=== PATIENT | female | born 1960 | race Caucasian/White ===

== ENCOUNTER → 2016-11-03 | Outpatient (CLI) | payer MEDICARE ==
--- NOTE | 2016-11-03 08:31 | BD ---
EXAMINATION TYPE: MG DEXA axial skeleton. DATE OF EXAM: 11/03/2016 7:45 AM COMPARISON: NONE CLINICAL HISTORY: Height: 62.5 IN Weight: 122 LBS FRAX RISK QUESTIONS: Alcohol (3 or more units per day): NO Family History (Parent hip fracture): NO Glucocorticoids (More than 3mos): NO (Ex: prednisone, prednisolone, methylprednisolone, dexamethasone, and hydrocortisone). History of Fracture in Adulthood: YES Secondary Osteoporosis: 1. Type 1 Diabetes: NO 2. Hyperthyroidism: NO 3. Menopause before 45: NO 4. Malnutrition: NO 5. Chronic liver disease: NO Rheumatoid Arthritis: YES Current Tobacco Use: YES RISK FACTORS HISTORY OF: Other Fractures since Age 51: YES RIB FX When: AGE 52 Active: YES Diet low in dairy products/other sources of calcium: YES Postmenopausal woman: AGE 49 Take estrogen and/or progesterone medications: NOT NOW How long: AGE 48 - 50 MEDICATIONS: Additional Medications: QUAR, VENTILIN, RISPERIDINE, NORCO, IBUPROFEN EXAM MEASUREMENTS: Bone mineral densitometry was performed using the Acupera System. Bone mineral density as measured about the Lumbar spine is: ----- L1-L4(G/cm2): 0.822 T Score Values are as follows: ----- L2: -3.3 ----- L3: -3.3 ----- L4: -2.6 ----- L1-L4: -3.0 Bone mineral density BASELINE Bone mineral density about the R hip (g/cm2): 0.686 Bone mineral density about the L hip (g/cm2): 0.692 T Score values are as follows: -----R Neck: -2.5 -----L Neck: -2.5 -----R Intertrochanter: -2.7 -----L Intertrochanter: -2.1 Bone mineral density BASELINE IMPRESSION: Osteoporosis (T Score less than -2.5) as noted by T Score values at the There is increased fracture risk and therapy is usually indicated based on age. Re-Screen 1-2 years. NOTE: T-SCORE=SD OF THE YOUNG ADULT MEAN.
== END | disposition home or self-care (01) ==
LOC: RADBDWWP 07:43
PROVIDERS: ATTEND Family Medicine
DX: M81.0 Age-related osteoporosis without current pathological fracture (principal)
CPT/HCPCS: 77080

== ENCOUNTER 2021-11-19 08:14 | Day surgery (SDC) | payer MEDICARE ==
[2021-11-17 09:51] VITALS: BMI 23.2
[~2021-11-19 08:14] MED LIST: LACTATED RINGERS 1,000 ML IV SCH; LIDOCAINE 1% (10MG/ML) FOR IV START INTRADERMA PRN
[2021-11-19 09:22] VITALS: TEMP 97.4
[2021-11-19] MEDS ORDERED: LIDOCAINE 1% INJ 10MG/ML (20 ML MDV) ONE (09:59)
[2021-11-19] MEDS ORDERED: PROPOFOL 10 MG/ML 20 ML VIAL IV ONE (09:59)
--- NOTE | 2021-11-19 10:15 | P.PCN ---
Date of Procedure: 11/19/21 Procedure(s) Performed: BRIEF HISTORY: Patient is a 61-year-old pleasant scheduled white female for an elective colonoscopy as a part of evaluation of positive cologuard. PROCEDURE PERFORMED: Colonoscopy with snare polypectomy. PREOPERATIVE DIAGNOSIS: Positive cologuard. IV sedation per Anesthesia. PROCEDURE: After informed consent was obtained, the patient, was brought into the endoscopy unit. IV sedation was administered by Anesthesia under continuous monitoring. Digital rectal examination was normal. Initially the Olympus CF-160 flexible video colonoscope was then inserted in the rectum, gradually advanced into the cecum without any difficulty. Careful examination was performed as the scope was gradually being withdrawn. Ileocecal valve and the appendiceal orifice were visualized and appeared normal. Prep was excellent. Mucosa of the cecum, ascending colon, transverse colon, descending colon normal. In the sigmoid colon there was a 1 cm polyp removed by snare polypectomy. In the rectum there were 3 small polyps measuring 3-4 mm in size all of which were removed by snare polypectomy. Scattered sigmoid diverticulosis seen. Rest of the sigmoid colon, and rectum appeared normal. Retroflexion was performed in the rectum and no lesions were seen. The patient tolerated the procedure well. IMPRESSION: 1 cm; sigmoid polyp status post polypectomy 3-4 mm 3 rectal polyps status post polypectomy Scattered sigmoid diverticula RECOMMENDATIONS: Findings of this examination were discussed with the patient as well as her family. She was advised to follow with the biopsy results. If the biopsies reveal adenoma she can have a repeat colonoscopy in 3 years..
[2021-11-19 10:46] VITALS: BP 151/82; PULSE 66; RESP 20
== END 2021-11-19 11:09 | disposition home or self-care (01) ==
LOC: ORWHC2ENDO 08:14
PROVIDERS: ATTEND Internal Medicine Gastroenterology
DX: D12.5 Benign neoplasm of sigmoid colon (principal); K62.1 Rectal polyp; K57.30 Diverticulosis of large intestine without perforation or abscess without bleeding; Z79.899 Other long term (current) drug therapy; J44.9 Chronic obstructive pulmonary disease, unspecified; Z87.891 Personal history of nicotine dependence; M06.9 Rheumatoid arthritis, unspecified; F41.9 Anxiety disorder, unspecified; F31.9 Bipolar disorder, unspecified
CPT/HCPCS: 88305; 45385; J2001; J2704

== ENCOUNTER 2021-11-23 02:41 | Observation (INO) | payer MEDICARE ==
[2021-11-23] MEDS ORDERED: SODIUM CHLORIDE 0.9% 500 ML 500 ML IV STA (05:56)
--- NOTE | 2021-11-23 06:26 | ED ---
Recheck HPI - General Chief Complaint: GI Bleed Stated Complaint: Rectal Bleeding Time Seen by Provider: 11/23/21 04:02 Source: patient, RN notes reviewed, old records reviewed Mode of arrival: ambulatory Limitations: no limitations - History of Present Illness Initial Comments: This is a 7-year-old female DF for evaluation she presents today for evaluation of bright red blood per rectum with blood clots, patient colonoscopy on for Dr. Blair noticed bleeding last night had minimal spotting and then some clotting. No lightheadedness dizziness or weakness, patient does not fill his episodes but even with change of position. She is without pain. A she is on blood thinners. Patient did have multiple polyps removed during colonoscopy MD Complaint: wound re-check, abnormal lab (Patient concern for bleeding per r ectum) -: hour(s) Returns Today for: other (Bleeding after colonoscopy) Symptoms Since Prior Visit: no new symptoms Context: other (Bleeding after colonoscopy) Associated Symptoms: none Treatments Prior to Arrival: other (none) - Related Data Home Medications Medication Instructions Recorded Confirmed risperiDONE [RisperDAL] 1 mg PO HS 11/17/21 11/19/21 Allergies Allergy/AdvReac Type Severity Reaction Status Date / Time No Known Allergies Allergy Verified 11/23/21 03:32 Review of Systems ROS Statement: Those systems with pertinent positive or pertinent negative responses have been documented in the HPI. ROS Other: All systems not noted in ROS Statement are negative. Past Medical History Past Medical History: COPD, Rheumatoid Arthritis (RA) Additional Past Medical History / Comment(s): DDD History of Any Multi-Drug Resistant Organisms: None Reported Past Surgical History: No Surgical Hx Reported Additional Past Surgical History / Comment(s): LESION OFF OVARY, D & C., COLONOSCOPY. Past Anesthesia/Blood Transfusion Reactions: No Reported Reaction Past Psychological History: Anxiety, Bipolar, Depression Smoking Status: Former smoker Past Alcohol Use History: Heavy Past Drug Use History: None Reported - Past Family History Mother Family Medical History: COPD Additional Family Medical History / Comment(s): Mother at age 62 from complications of COPD Father Family Medical History: Diabetes Mellitus, Hyperlipidemia, Hypertension Additional Family Medical History / Comment(s): hypertension and high cholesterol. General Exam General appearance: alert, in no apparent distress Head exam: Present: atraumatic, normocephalic, normal inspection Eye exam: Present: normal appearance, PERRL, EOMI. Absent: scleral icterus, conjunctival injection, periorbital swelling ENT exam: Present: normal exam, mucous membranes moist Neck exam: Present: normal inspection. Absent: tenderness, meningismus, lymphadenopathy Respiratory exam: Present: normal lung sounds bilaterally. Absent: respiratory distress, wheezes, rales, rhonchi, stridor Cardiovascular Exam: Present: regular rate, normal rhythm, normal heart sounds. Absent: systolic murmur, diastolic murmur, rubs, gallop, clicks GI/Abdominal exam: Present: soft, normal bowel sounds. Absent: distended, tenderness, guarding, rebound, rigid Extremities exam: Present: normal inspection, full ROM, normal capillary refill. Absent: tenderness, pedal edema, joint swelling, calf tenderness Back exam: Present: normal inspection Neurological exam: Present: alert, oriented X3, CN II-XII intact Psychiatric exam: Present: normal affect, normal mood Skin exam: Present: warm, dry, intact, normal color. Absent: rash Course Vital Signs 11/23/21 11/23/21 11/23/21 03:26 04:15 06:25 Temperature 98.6 F Pulse Rate 80 76 75 Respiratory 18 18 18 Rate Blood Pressure 151/99 159/97 154/90 O2 Sat by Pulse 97 99 97 Oximetry - Reevaluation(s) Reevaluation #1: 11/23/21 07:12 Medical records reviewed Reevaluation #2: 11/23/21 07:12 Patient is no pain remains without pain. No recurrent significant bowel movements containing blood Reevaluation #3: 11/23/21 07:12 Spoke patient regarding findings and questions answered - Consultations Consultation #1: Spoke with [facility] who will admit this patient Medical Decision Making - Medical Decision Making 61 female to the ER for evaluation of bleeding bright red blood per rectum after colonoscopy. Also with some clots. No recurrent bleeding here in the ER. We'll admit for repeat CBC - Lab Data Result diagrams: 11/23/21 06:25 11/23/21 06:25 Lab Results 11/23/21 11/23/21 11/23/21 Range/Units 06:25 06:25 06:25 WBC 10.7 H (3.8-10.6) k/uL RBC 4.23 (3.80-5.40) m/uL Hgb 13.6 (11.4-16.0) gm/dL Hct 41.0 (34.0-46.0) % MCV 96.9 (80.0-100.0) fL MCH 32.2 (25.0-35.0) pg MCHC 33.2 (31.0-37.0) g/dL RDW 12.3 (11.5-15.5) % Plt Count 268 (150-450) k/uL MPV 7.6 Neutrophils % 71 % Lymphocytes % 21 % Monocytes % 5 % Eosinophils % 1 % Basophils % 1 % Neutrophils # 7.6 (1.3-7.7) k/uL Lymphocytes # 2.2 (1.0-4.8) k/uL Monocytes # 0.6 (0-1.0) k/uL Eosinophils # 0.1 (0-0.7) k/uL Basophils # 0.1 (0-0.2) k/uL PT 10.7 (9.0-12.0) sec INR 1.0 (<1.2) APTT 25.6 (22.0-30.0) sec Sodium 137 (137-145) mmol/L Potassium 4.0 (3.5-5.1) mmol/L Chloride 104 (98-107) mmol/L Carbon Dioxide 28 (22-30) mmol/L Anion Gap 5 mmol/L BUN 10 (7-17) mg/dL Creatinine 0.73 (0.52-1.04) mg/dL Est GFR (CKD-EPI)AfAm >90 (>60 ml/min/1.73 sqM) Est GFR (CKD-EPI)NonAf >90 (>60 ml/min/1.73 sqM) Glucose 100 H (74-99) mg/dL Calcium 8.8 (8.4-10.2) mg/dL Magnesium 1.8 (1.6-2.3) mg/dL Total Bilirubin 0.6 (0.2-1.3) mg/dL AST 25 (14-36) U/L ALT 19 (4-34) U/L Alkaline Phosphatase 66 (38-126) U/L Total Protein 6.9 (6.3-8.2) g/dL Albumin 4.1 (3.5-5.0) g/dL Blood Type Recheck Bld Type Recheck Status Spec Expiration Date 11/23/21 Range/Units 06:25 WBC (3.8-10.6) k/uL RBC (3.80-5.40) m/uL Hgb (11.4-16.0) gm/dL Hct (34.0-46.0) % MCV (80.0-100.0) fL MCH (25.0-35.0) pg MCHC (31.0-37.0) g/dL RDW (11.5-15.5) % Plt Count (150-450) k/uL MPV Neutrophils % % Lymphocytes % % Monocytes % % Eosinophils % % Basophils % % Neutrophils # (1.3-7.7) k/uL Lymphocytes # (1.0-4.8) k/uL Monocytes # (0-1.0) k/uL Eosinophils # (0-0.7) k/uL Basophils # (0-0.2) k/uL PT (9.0-12.0) sec INR (<1.2) APTT (22.0-30.0) sec Sodium (137-145) mmol/L Potassium (3.5-5.1) mmol/L Chloride (98-107) mmol/L Carbon Dioxide (22-30) mmol/L Anion Gap mmol/L BUN (7-17) mg/dL Creatinine (0.52-1.04) mg/dL Est GFR (CKD-EPI)AfAm (>60 ml/min/1.73 sqM) Est GFR (CKD-EPI)NonAf (>60 ml/min/1.73 sqM) Glucose (74-99) mg/dL Calcium (8.4-10.2) mg/dL Magnesium (1.6-2.3) mg/dL Total Bilirubin (0.2-1.3) mg/dL AST (14-36) U/L ALT (4-34) U/L Alkaline Phosphatase (38-126) U/L Total Protein (6.3-8.2) g/dL Albumin (3.5-5.0) g/dL Blood Type Recheck No Previous Record Bld Type Recheck Status CABO Indicated Spec Expiration Date 11/26/2021 - 2324 Disposition Clinical Impression: Post-op bleeding Disposition: ADMITTED IP TO THIS HOSP Condition: Good Is patient prescribed a controlled substance at d/c from ED?: No Referrals: Navi Enriquez MD [Primary Care Provider] - 1-2 days
[2021-11-23 06:36] LABS: Basophils # (A) 0.1 k/uL (0-0.2); Basophils % (A) 1 %; Eosinophils # (A) 0.1 k/uL (0-0.7); Eosinophils % (A) 1 %; HGB 13.6 gm/dL (11.4-16.0); Lymphocytes # (A) 2.2 k/uL (1.0-4.8); Lymphocytes % (A) 21 %; MCH 32.2 pg (25.0-35.0); MCHC 33.2 g/dL (31.0-37.0); MCV 96.9 fL (80.0-100.0); Mean Platelet Volume 7.6; Monocytes # (A) 0.6 k/uL (0-1.0); Monocytes % (A) 5 %; Neutrophils # (A) 7.6 k/uL (1.3-7.7); Neutrophils % (A) 71 %; Platelet Count 268 k/uL (150-450); RBC 4.23 m/uL (3.80-5.40); RDW 12.3 % (11.5-15.5); WBC 10.7 k/uL (3.8-10.6)
[2021-11-23 06:44] LABS: ALT 19 U/L (4-34); AST 25 U/L (14-36); African American GFR (CKD) >90 (>60 ml/min/1.73 sqM); Albumin 4.1 g/dL (3.5-5.0); Alkaline Phosphatase 66 U/L (38-126); Anion Gap 5 mmol/L; Blood Urea Nitrogen 10 mg/dL (7-17); Calcium 8.8 mg/dL (8.4-10.2); Carbon Dioxide 28 mmol/L (22-30); Chloride 104 mmol/L (98-107); Glucose 100 mg/dL (74-99); Magnesium 1.8 mg/dL (1.6-2.3); Non-African American GFR(CKD) >90 (>60 ml/min/1.73 sqM); Sodium 137 mmol/L (137-145); Total Bilirubin 0.6 mg/dL (0.2-1.3); Total Protein 6.9 g/dL (6.3-8.2)
[2021-11-23 06:52] LABS: Partial Thromboplastin Time 25.6 sec (22.0-30.0); Prothrombin Time 10.7 sec (9.0-12.0)
[2021-11-23] MEDS ORDERED: ONDANSETRON 4 MG/2 ML VIAL IVP PRN (07:08)
[2021-11-23] MEDS ORDERED: NALOXONE 0.4 MG/ML 1 ML VIAL IV PRN (07:08)
[2021-11-23] MEDS: SODIUM CHLORIDE 0.9% 1,000 ML IV SCH (09:34)
[2021-11-23] MEDS: PANTOPRAZOLE 40 MG/10 ML VIAL IV SCH (10:39)
[2021-11-23 13:25] LABS: Basophils # (A) 0.1 k/uL (0-0.2); Basophils % (A) 1 %; Eosinophils # (A) 0.2 k/uL (0-0.7); Eosinophils % (A) 2 %; HCT 34.6 % (34.0-46.0); HGB 11.7 gm/dL (11.4-16.0); Lymphocytes # (A) 2.5 k/uL (1.0-4.8); Lymphocytes % (A) 30 %; MCH 33.2 pg (25.0-35.0); MCHC 33.8 g/dL (31.0-37.0); MCV 98.2 fL (80.0-100.0); Mean Platelet Volume 7.5; Monocytes # (A) 0.6 k/uL (0-1.0); Monocytes % (A) 8 %; Neutrophils # (A) 4.8 k/uL (1.3-7.7); Neutrophils % (A) 58 %; Platelet Count 236 k/uL (150-450); RBC 3.52 m/uL (3.80-5.40); RDW 12.3 % (11.5-15.5); WBC 8.3 k/uL (3.8-10.6)
[2021-11-23 19:43] VITALS: TEMP 98.4
--- NOTE | 2021-11-23 22:45 | P.HPIM ---
History of Present Illness H&P Date: 11/23/21 Chief Complaint: Blood per rectum Patient is a 61-year-old female with known history of COPD, rheumatoid arthritis, degenerative disc disease, anxiety/depression and bipolar disorder and prior history of smoking and heavy alcohol use presents to ER with complaints of bright red blood per rectum with blood clots. Patient had colonoscopy on 11/19/[address] Blair. Was found to have 1 cm sigmoid polyp status post polypectomy and 3 to 4 mm x 3 rectal polyps status post polypectomy and scattered sigmoid diverticula. Patient otherwise denies any complaints of abdominal pain. No dysuria or hematuria. No cough or sputum production. No chest pain or shortness of breath. No fever no chills. Currently patient is not on any blood thinners. Laboratory data showed WBC 10.7 hemoglobin 13.6 and platelet count 268 Sodium 137 potassium 4.0 chloride 104 BUN 10 and creatinine 0.17 blood sugar is 100 and calcium 8.8 liver enzymes are not elevated. Review of Systems Constitutional: Patient denies any fever or chills . No generalized weakness or weight loss. Abdomen: Patient denied nausea vomiting and diarrhea and abdominal pain. Cardiovascular: Patient denies any chest pain or short of breath no palpitations. Respiratory: patient denied any cough or sputum production. No shortness of breath Neurologic: Patient denied any numbness or tingling headache. Musculoskeletal: Patient denies any complaints of joint swelling or deformity. Skin: Negative Psychiatric: Negative Endocrine: No heat or cold intolerance. No recent weight gain. Genitourinary: No dysuria or hematuria. All other 14 point ROS negative except the above Past Medical History Past Medical History: COPD, Rheumatoid Arthritis (RA) Additional Past Medical History / Comment(s): DDD History of Any Multi-Drug Resistant Organisms: None Reported Past Surgical History: No Surgical Hx Reported Additional Past Surgical History / Comment(s): LESION OFF OVARY, D & C., COLONOSCOPY. Past Anesthesia/Blood Transfusion Reactions: No Reported Reaction Past Psychological History: Anxiety, Bipolar, Depression Smoking Status: Former smoker Past Alcohol Use History: Heavy Additional Past Alcohol Use History / Comment(s): DRINKS 3 BEERS 3-5 DAYS A WEEK. QUIT SMOKING 2 MONTHS AGO, STARTED AGE 17, SMOKED 1 PPD, QUIT FOR 10-15 YRS & RESTARTED. Past Drug Use History: None Reported Additional Drug Use History / Comment(s): PAST HX OF COCAINE & NARCOTIC ADDICTION. - Past Family History Mother Family Medical History: COPD Additional Family Medical History / Comment(s): Mother at age 62 from complications of COPD Father Family Medical History: Diabetes Mellitus, Hyperlipidemia, Hypertension Additional Family Medical History / Comment(s): hypertension and high cholesterol. Medications and Allergies Home Medications Medication Instructions Recorded Confirmed Type risperiDONE [RisperDAL] 1 mg PO HS 11/17/21 11/23/21 History Allergies Allergy/AdvReac Type Severity Reaction Status Date / Time No Known Allergies Allergy Verified 11/23/21 11:18 Physical Exam Vitals: Vital Signs Temp Pulse Pulse Resp BP BP Pulse Ox 11/23/21 08:39 97.6 F 77 16 171/96 99 11/23/21 06:25 75 18 154/90 97 11/23/21 04:15 76 18 159/97 99 11/23/21 03:26 98.6 F 80 18 151/99 97 Intake and Output 11/22/21 11/23/21 11/23/21 22:59 06:59 14:59 Other: Weight 58.967 kg 58.967 kg PHYSICAL EXAMINATION: Patient is lying in the bed comfortably, no acute distress, awake alert and oriented.. HEENT: Normocephalic. Neck is supple. Pupils reactive. Nostrils clear. Oral cavity is moist. Neck reveals no JVD, carotid bruits, or thyromegaly. CHEST EXAMINATION: Trachea is central. Symmetrical expansion. Lung [place] clear to auscultation and percussion. CARDIAC: Normal S1, S2 with no gallops. No murmurs ABDOMEN: Soft. Bowel sounds normal. No organomegaly. No abdominal bruits. Extremities: reveal no edema. No clubbing or cyanosis Neurologically awake, alert, oriented x3 with well-coordinated movements. No focal deficits noted Skin: No rash or skin lesions. Psychiatric: Cooperative. Nonsuicidal Musculoskeletal: No joint swelling or deformity. Normal range of motion. Results CBC & Chem 7: 11/23/21 13:12 11/23/21 06:25 Labs: Abnormal Lab Results - Last 24 Hours (Table) 11/23/21 11/23/21 Range/Units 06:25 06:25 WBC 10.7 H (3.8-10.6) k/uL Glucose 100 H (74-99) mg/dL Thrombosis Risk Factor Assmnt - DVT/VTE Prophylaxis DVT/VTE Prophylaxis: Pharmacologic Prophylaxis ordered - Choose All That Apply Each Factor Represents 1 point: Age 41-60 years Thrombosis Risk Factor Assessment Total Risk Factor Score: 1 Thrombosis Risk Factor Assessment Level: Low Risk Assessment and Plan Assessment: Bright red blood per rectum with blood clots status post colonoscopy on 11/19/2021 with multiple polypectomy. COPD not in exacerbation Rheumatoid arthritis Degenerative disc disease Anxiety/depression bipolar disorder Previous history of of smoking Daily alcohol use DVT prophylaxis with SCDs Plan: Patient will be continued on IV hydration and monitor H&H. Rectal bleeding/clots likely due to postsurgical and no active bleeding noted at this time. Continue to monitor patient for 24 hours and monitor for any alcohol withdrawal symptoms. Currently patient denies any complaints of abdominal pain. Anticipate discharge in the next 24 hours. Follow-up CBC and BMP tomorrow.
[2021-11-24] MEDS: SODIUM CHLORIDE 0.9% 1,000 ML IV SCH (08:13)
[2021-11-24] MEDS: PANTOPRAZOLE 40 MG/10 ML VIAL IV SCH (08:14)
[2021-11-24 08:21] VITALS: BP 109/60; PULSE 63; RESP 16
[2021-11-24] MEDS ORDERED: MULTIVITAMINS, THERA 1 EACH TAB PO SCH (09:00)
[2021-11-24] MEDS ORDERED: THIAMINE 100 MG TAB PO SCH (09:00)
[2021-11-24 10:42] LABS: Basophils # (A) 0.02 X 10*3/uL (0.00-0.10); Basophils % (A) 0.3 %; Eosinophils # (A) 0.16 X 10*3/uL (0.04-0.35); Eosinophils % (A) 2.3 %; HCT 33.2 % (37.2-46.3); HGB 10.8 g/dL (12.0-15.0); Immature Grans, Automated 0.3 %; Lymphocytes # (A) 2.15 X 10*3/uL (0.90-5.00); Lymphocytes % (A) 30.8 %; MCH 31.9 pg (27.0-32.0); MCHC 32.5 g/dL (32.0-37.0); MCV 97.9 fL (80.0-97.0); Mean Platelet Volume 10.5 fL (9.5-12.2); Monocytes # (A) 0.59 X 10*3/uL (0.20-1.00); Monocytes % (A) 8.4 %; NRBC Per 100 WBC 0 /100 WBCS (0.0-0.0); Neutrophils # (A) 4.05 X 10*3/uL (1.80-7.70); Neutrophils % (A) 57.9 %; Platelet Count 235 X 10*3/uL (140-440); RBC 3.39 X 10*6/uL (4.10-5.20); RDW 12.8 % (11.5-14.5); WBC 6.99 X 10*3/uL (4.50-10.00)
[2021-11-24 11:02] LABS: African American GFR (CKD) 92.9 (60.0-200.0); Albumin/Globulin Ratio 2.35 (1.60-3.17); Anion Gap 9.6 mmol/L (10.00-18.00); BUN/Creat Ratio 14.25 Ratio (12.00-20.00); Blood Urea Nitrogen 11.4 mg/dL (9.0-27.0); Calcium 8.8 mg/dL (8.7-10.3); Carbon Dioxide 26.4 mmol/L (20.0-27.5); Globulin 1.7 g/dL (1.6-3.3); Non-African American GFR(CKD) 80.1 (60.0-200.0); Potassium 4.1 mmol/L (3.5-5.5); Total Bilirubin 0.4 mg/dL (0.30-1.20); Total Protein 5.7 g/dL (6.2-8.2)
--- NOTE | 2021-11-25 15:39 | P.DS ---
Providers Date of admission: 11/23/21 07:39 Expected date of discharge: 11/24/21 Attending physician: Navi Enriquez MD Primary care physician: Navi Enriquez MD Hospital Course: Final Diagnoses: Bright red blood per rectum with blood clots status post colonoscopy on 11/19/2021 with multiple polypectomy. Resolved, hemoglobin stable. COPD not in exacerbation Rheumatoid arthritis Degenerative disc disease Anxiety/depression bipolar disorder Previous history of of smoking Daily alcohol use Hospital course:Patient is a 61-year-old female with known history of COPD, rheumatoid arthritis, degenerative disc disease, anxiety/depression and bipolar disorder and prior history of smoking and heavy alcohol use presents to ER with complaints of bright red blood per rectum with blood clots. Patient had colonoscopy on 11/19/[address] Blair. Was found to have 1 cm sigmoid polyp status post polypectomy and 3 to 4 mm x 3 rectal polyps status post polypectomy and scattered sigmoid diverticula. Patient otherwise denies any complaints of abdominal pain. No dysuria or hematuria. No cough or sputum production. No chest pain or shortness of breath. No fever no chills. Currently patient is not on any blood thinners. Laboratory data showed WBC 10.7 hemoglobin 13.6 and platelet count 268 Sodium 137 potassium 4.0 chloride 104 BUN 10 and creatinine 0.17 blood sugar is 100 and calcium 8.8 liver enzymes are not elevated. Maintained on IV fluid hydration with close monitoring of H&H. No further rectal bleeding reported. Reports no bowel movement since admission. Tolerating diet with no nausea or vomiting. Ambulating, tolerated exertion well. Denies chest pain, palpitations or shortness of breath. Denies lightheadedness, dizziness or focal deficits. Patient will be discharged home today in a stable condition with guarded prognosis, outpatient CBC. The impression and plan of care has been dictated as directed. : I performed a history and examination of this patient, discussed the same with the dictator. I agree with the dictator's note ,documented as a scribe. Any additional findings or plans will be noted. Patient Condition at Discharge: Stable Plan - Discharge Summary Discharge Rx Participant: No New Discharge Prescriptions: New Multivitamins, Thera [Multivitamin (formulary)] 1 each PO DAILY tab Thiamine [Vitamin B-1] 100 mg PO DAILY tab Continue risperiDONE [RisperDAL] 1 mg PO HS Discharge Medication List risperiDONE [RisperDAL] 1 mg PO HS 11/17/21 [History] Multivitamins, Thera [Multivitamin (formulary)] 1 each PO DAILY tab 11/24/21 [Rx] Thiamine [Vitamin B-1] 100 mg PO DAILY tab 11/24/21 [Rx] Follow up Appointment(s)/Referral(s): Navi Enriquez MD [Primary Care Provider] - 11/26/21 11:45 am (Appointment will be at the [place] location.) Ambulatory/Diagnostic Orders: Complete Blood Count w/diff [LAB.AMB] Time Frame: 3 Days, Location: None Selected Patient Instructions/Handouts: Gastrointestinal Bleeding (DC) Discharge Disposition: HOME SELF-CARE
== END 2021-11-24 12:15 | disposition home or self-care (01) ==
LOC: EC 02:41 → 6NMEDSUR 07:39
PROVIDERS: ADMIT Family Medicine; ATTEND Family Medicine
DX: K91.840 Postprocedural hemorrhage of a digestive system organ or structure following a digestive system procedure (principal); Y83.8 Other surgical procedures as the cause of abnormal reaction of the patient, or of later complication, without mention of misadventure at the time of the procedure; K63.5 Polyp of colon; K57.30 Diverticulosis of large intestine without perforation or abscess without bleeding; J44.9 Chronic obstructive pulmonary disease, unspecified; F41.9 Anxiety disorder, unspecified; F31.9 Bipolar disorder, unspecified; M06.9 Rheumatoid arthritis, unspecified; K62.1 Rectal polyp; Z82.49 Family history of ischemic heart disease and other diseases of the circulatory system; Z82.5 Family history of asthma and other chronic lower respiratory diseases; Z83.3 Family history of diabetes mellitus; Z87.891 Personal history of nicotine dependence
CPT/HCPCS: 96376; 96374; 99285; 36415; 86900; 86901; 80053 ×2; 83735; 85025 ×2; 85610; 85730; 86850; G0378 ×2; C9113 ×2

== ENCOUNTER → 2023-11-17 | Outpatient (CLI) | payer MEDICARE ==
--- NOTE | 2023-11-21 18:13 | MM ---
Reason for Exam: Screening (asymptomatic). Last mammogram was performed 10 year(s) and 4 month(s) ago. Patient History: Menarche at age 14. First Full-Term at age 20. Postmenopausal. Estrogen for 1 year from age 49 until age 50. Progesterone for 1 year from age 49 until age 50. Risk Values: Dulce Maria 5 year model risk: 1.1%. NCI Lifetime model risk: 5.0%. Prior Study Comparison: No prior studies available for comparison. Tissue Density: The breasts are heterogeneously dense, which may obscure small masses. Findings: Analyzed By CAD. There is a 1 cm mass at the approximate 5:00 position right breast close to the nipple. 3-D images suggest circumscribed margins. Further ultrasound evaluation is recommended. No suspicious microcalcification or other discrete abnormality is seen. Overall Assessment: Incomplete: need additional imaging evaluation, BI-RAD 0 Management: Diagnostic Breast Ultrasound of the right breast. For further assessment of a 1 cm nodule 5:00 right breast close to the nipple. [facility] will attempt to contact patient to return for supplemental views and ultrasound if indicated. Electronically signed and approved by: Perez Calixto M.D. Radiologist
== END | disposition home or self-care (01) ==
LOC: RADMAMWWP 10:14
PROVIDERS: ATTEND Family Medicine
DX: Z12.31 Encounter for screening mammogram for malignant neoplasm of breast (principal); Z78.0 Asymptomatic menopausal state
CPT/HCPCS: 77063; 77067

== ENCOUNTER → 2023-11-17 | Outpatient (CLI) | payer MEDICARE ==
--- NOTE | 2023-11-17 12:25 | CTL ---
EXAMINATION TYPE: CT Low Dose Lung DATE OF EXAM ORDERED: 11/17/2023 HISTORY: . Lung cancer screening CT DLP: 62.[address] CTDI: 1.6 mGy Automated exposure control for dose reduction was used. SCREENING VISIT: Follow-up. COMPARISON: 11/13/2022. TECHNIQUE: Low dose computed tomography scan was performed through the chest at 1 mm thick sections a nd reconstructed images in multiple planes at 1 mm and [address] DIAGNOSTIC QUALITY: Satisfactory FINDINGS: Mediastinum and Kaylyn: There is no axillary, mediastinal or hilar lymphadenopathy. Pleural and Pericardial spaces: There are no pleural or pericardial effusions. Upper Abdomen: There is a 2.3 cm cyst within the left lobe of the liver. Additional cyst is seen of t he liver dome measuring 1.9 cm. The visualized upper abdomen otherwise appears unremarkable. Cardiovascular: There is mild vascular calcification in the aortic arch without evidence of aneurysma l dilation. Lung Parenchyma and Airways: Mild diffuse centrilobular emphysema is seen. Bones: No fracture or aggressive osseous lesion. IMPRESSION: 1. Negative lung cancer screening examination for significant pulmonary nodules. 2. Mild emphysema. CT LUNG RAD AND CT CHEST RECOMMENDATION: Lung-Rad 1 Negative: Continue annual screening with LDCT in 12 months.
== END | disposition home or self-care (01) ==
LOC: RADCTMAIN 09:57
PROVIDERS: ATTEND Family Medicine
DX: Z12.2 Encounter for screening for malignant neoplasm of respiratory organs (principal); J43.2 Centrilobular emphysema; Z87.891 Personal history of nicotine dependence
CPT/HCPCS: 71271

== ENCOUNTER → 2023-11-23 | Outpatient (CLI) | payer MEDICARE ==
--- NOTE | 2023-11-23 15:00 | USB ---
Reason for Exam: Additional evaluation requested from abnormal screening. Patient History: Menarche at age 14. First Full-Term at age 20. Postmenopausal. Estrogen for 1 year from age 49 until age 50. Progesterone for 1 year from age 49 until age 50. Risk Values: Dulce Maria 5 year model risk: 1.1%. NCI Lifetime model risk: 5.0%. Technique: Method: Targeted. Doppler: Color. Patient Position: Supine. Prior Study Comparison: 02/05/2010 Bilateral Screening Mammogram, [facility]. 08/01/2013 Bilateral Screening Mammogram, [facility]. 11/17/2023 Bilateral MG 3D screening mammo w/cad, [facility]. Findings: The periareolar of the right breast, the axilla of the right breast and the retroareolar of the right breast were scanned. Technique utilized:US breast workup limited RT Image; Ultrasound imaging of: Area of concern, retroareolar region and axilla. There is a simple appearing cyst at 4:00 1 cm from the nipple measuring 8 x 9 x 6 mm with dilated ducts in the area. There a be a masslike area within one of these ducts measuring 4 x 3 mm seen on one image. Consider short-term follow-up in 3 months to ensure stability/resolution.. Overall Assessment: Probably benign, BI-RAD 3 Management: Diagnostic Breast Ultrasound of the right breast in 3 months. A clinical breast exam by your physician is recommended on an annual basis and results should be correlated with mammographic findings. This exam should not preclude additional follow-up of suspicious palpable abnormalities. Results were given to the patient verbally at the time of exam. Electronically signed and approved by: Mark Lundberg DO
== END | disposition home or self-care (01) ==
LOC: RADUSWWP 13:41
PROVIDERS: ATTEND Family Medicine
DX: R92.8 Other abnormal and inconclusive findings on diagnostic imaging of breast (principal); Z78.0 Asymptomatic menopausal state

== ENCOUNTER → 2024-02-24 | Outpatient (CLI) | payer MEDICARE ==
--- NOTE | 2024-02-24 09:53 | USB ---
Reason for Exam: Follow-up at short interval from prior study. Patient History: Menarche at age 14. First Full-Term at age 20. Postmenopausal. Estrogen for 1 year from age 49 until age 50. Progesterone for 1 year from age 49 until age 50. Risk Values: Dulce Maria 5 year model risk: 1.1%. NCI Lifetime model risk: 4.9%. Technique: Method: Targeted. Prior Study Comparison: 02/05/2010 Bilateral Screening Mammogram, [facility]. 08/01/2013 Bilateral Screening Mammogram, [facility]. 11/17/2023 Bilateral MG 3D screening mammo w/cad, [facility]. Findings: The periareolar of the right breast, the axilla of the right breast and the retroareolar of the right breast were scanned. Complex cystic lesion right 4:00 position 1 cm from the nipple. Aspiration is advised. This lesion measures 1 cm x 5 mm. Additional periductal or intraductal hypoechoic area measuring 8 mm at the 12:00 position. Additional aspiration or biopsy is advised at this area. Overall Assessment: Suspicious, BI-RAD 4 Management: Ultrasound Core Biopsy of the right breast. A clinical breast exam by your physician is recommended on an annual basis and results should be correlated with mammographic findings. This exam should not preclude additional follow-up of suspicious palpable abnormalities. Results were given to the patient verbally at the time of exam. Electronically signed and approved by: Cheo Putnam M.D. Radiologis
== END | disposition home or self-care (01) ==
LOC: RADUSWWP 09:19
PROVIDERS: ATTEND Family Medicine
DX: N63.10 Unspecified lump in the right breast, unspecified quadrant (principal); Z78.0 Asymptomatic menopausal state

== ENCOUNTER → 2024-03-15 | Day surgery (SDC) | payer MEDICARE ==
--- NOTE | 2024-03-20 13:41 | MM ---
Reason for Exam: Post Procedure Mammogram. Last screening mammogram was performed 4 month(s) ago. Patient History: Menarche at age 14. First Full-Term at age 20. Postmenopausal. Estrogen for 1 year from age 49 until age 50. Progesterone for 1 year from age 49 until age 50. Risk Values: Dulce Maria 5 year model risk: 1.1%. NCI Lifetime model risk: 4.9%. Prior Study Comparison: 02/05/2010 Bilateral Screening Mammogram, [facility]. 08/01/2013 Bilateral Screening Mammogram, [facility]. 11/17/2023 Bilateral MG 3D screening mammo w/cad, [facility]. Tissue Density: Right: The breasts are heterogeneously dense, which may obscure small masses. Pathology Description: Location: 4 o'clock. no clip used. 0.5 mL aspirated The procedure of ultrasound guided core biopsy was explained to the patient. Benefits, alternatives, and risks were discussed. An informed consent was then obtained. A timeout was performed. The patient was placed in supine positioning for imaging and for the procedure. The overlying skin was prepped and draped in usual sterile fashion. Lidocaine was used as anesthetic into the skin and subcutaneous tissue up to area of concern in the right breast. A small skin jase was made with surgical scalpel. Under ultrasound guidance, a 12-gauge vacuum assisted biopsy gun device was used to obtain 2 core samples 12:00 position. It was noted during the biopsy appeared to be a pus like white fluid. A biopsy clip was left in lesion. Hydromark coil core marker was placed. The second area of concern at the 4:00 position 1 cm from the nipple was targeted. Following anesthetization with 1% lidocaine, an 18-gauge needle was advanced fluid withdrawn. Whitish thick fluid was obtained measured approximately 0.5 cm. Samples were sent to pathology for additional evaluation. The patient tolerated the procedure well without any immediate complication. The patient was kept in the radiology department for short stay after the procedure and then discharged home in stable condition. Postprocedure mammogram: The patient was transferred to mammography for physician ordered post procedure mammogram for clip placement verification. Impression: Successful ultrasound guided core biopsy of area of concern in the right breast, and aspiration second region. Full pathology results to follow. Recommendations: 1. Recommendations are pending pathology results. 2. Consider infection within the differential. Pathology Results: Results pending. Pathology Description: Location: 12 o'clock. Marker Left Behind. Needle Type: Mammotome Cores: 2 Skin Nicks: 1 Gauge: 13 The procedure of ultrasound guided core biopsy was explained to the patient. Benefits, alternatives, and risks were discussed. An informed consent was then obtained. A timeout was performed. The patient was placed in supine positioning for imaging and for the procedure. The overlying skin was prepped and draped in usual sterile fashion. Lidocaine was used as anesthetic into the skin and subcutaneous tissue up to area of concern in the right breast. A small skin jase was made with surgical scalpel. Under ultrasound guidance, a 12-gauge vacuum assisted biopsy gun device was used to obtain 2 core samples 12:00 position. It was noted during the biopsy appeared to be a pus like white fluid. A biopsy clip was left in lesion. Hydromark coil core marker was placed. The second area of concern at the 4:00 position 1 cm from the nipple was targeted. Following anesthetization with 1% lidocaine, an 18-gauge needle was advanced fluid withdrawn. Whitish thick fluid was obtained measured approximately 0.5 cm. Samples were sent to pathology for additional evaluation. The patient tolerated the procedure well without any immediate complication. The patient was kept in the radiology department for short stay after the procedure and then discharged home in stable condition. Postprocedure mammogram: The patient was transferred to mammography for physician ordered post procedure mammogram for clip placement verification. Impression: Successful ultrasound guided core biopsy of area of concern in the right breast, and aspiration second region. Full pathology results to follow. Recommendations: 1. Recommendations are pending pathology results. 2. Consider infection within the differential. Pathology Results: Result: Benign, Fibrocystic change. RIGHT BREAST, 12:00, ULTRASOUND GUIDED CORE BIOPSY: Favor fibroadenoma with proliferative fibrocystic change with usual ductal hyperplasia and focal microcalcification. RIGHT BREAST ASPIRATION: Hypocellular fluid with rare inflammatory cells (see note). Notes Correlation with the concurrent right breast biopsy case [id number] is suggested. Overall Assessment: Benign Assessment: MG diagnostic mammo RT wo CAD - Right: Benign, BI-RAD 2. Management: Diagnostic Mammogram of the right breast in 6 months. Electronically signed and approved by: Luther Padilla D.O. Radiologis
== END ==
LOC: RADUSWWP 10:14
PROVIDERS: ATTEND Surgery
DX: D24.1 Benign neoplasm of right breast (principal); N62 Hypertrophy of breast; R92.8 Other abnormal and inconclusive findings on diagnostic imaging of breast; Z78.0 Asymptomatic menopausal state
CPT/HCPCS: 88305; 88173; 77065; 76942; 19000; 19083; A4648

== ENCOUNTER → 2024-03-24 | Outpatient (CLI) | payer MEDICARE ==
[2024-03-24 15:08] VITALS: BP 127/83; PULSE 72; RESP 17; TEMP 97.6
--- NOTE | 2024-03-24 15:16 | P.GSCN ---
History of Present Illness Consult date: 03/24/24 Reason for Consult: abnormal right breast mammogram Requesting physician: Navi Enriquez History of present illness: Lisa is a 64 year old female seen in consultation for Dr. Enriquez regarding an abnormal mammogram of the right breast. She had a Bilateral mammogram on 11-17-23, this led to a right breast diagnostic mammogram and ultrasound on 02-24-24. This showed a complex cyst at 4 oclock and a 8mm nodule at 12:00. Aspiration of the cyst was hypocellular and biopsy of the nodule favored fibroadenoma. This was personally reviewed and discussed with Dr. Monte. this was found in a routine screening mammogram. The patient does not feel any new lumps masses or nodules of concern in either breast. She has not had any recent trauma or infection in the breast. She has never had any surgery on her breast. Caffeine: 3 cups/day nicotine: 8 cigarettes/day chocolate: occasional Family History: none Hormonal History: menarche: 13 A1, breast fed: no, age at first : 20 menopause: 51 Surgical History: D&C Medical History: COPD DJD arthritis depression Social History: nicotine: as above alcohol: twice a week drugs: none Review of Systems - Constitutional Denies fever, Denies weight loss - EENT Eyes: denies blurred vision Ears: deny: decreased hearing, tinnitus Ears, nose, mouth and throat: Denies dysphagia - Breasts bilateral: as per HPI - Cardiovascular Reports shortness of breath, Denies chest pain - Respiratory Respiratory Comment(s): COPD - Gastrointestinal Reports as per HPI - Genitourinary Genitourinary: Denies dysuria, Denies hematuria Menstruation: Reports postmenopausal - Musculoskeletal Musculoskeleta Comment(s): arthritis Reports as per HPI - Integumentary Denies rash, Denies unusual bruising - Neurological Reports syncope, Denies headaches - Psychiatric Reports depression - Endocrine Reports weight change - Hematologic/Lymphatic Denies easy bleeding, Denies easy bruising - Allergic/Immunologic Reports seasonal allergies Past Medical History Past Medical History: COPD, Rheumatoid Arthritis (RA) Additional Past Medical History / Comment(s): DDD History of Any Multi-Drug Resistant Organisms: None Reported Past Surgical History: No Surgical Hx Reported Additional Past Surgical History / Comment(s): LESION OFF OVARY, D & C., COLONOSCOPY. Past Anesthesia/Blood Transfusion Reactions: No Reported Reaction Past Psychological History: Anxiety, Bipolar, Depression Smoking Status: Former smoker Past Alcohol Use History: Heavy Additional Past Alcohol Use History / Comment(s): DRINKS alcohol 2 times weekly, 3 drinks at a time. QUIT SMOKING 2 MONTHS AGO, STARTED AGE 17, SMOKED 1 PPD, QUIT FOR 10-15 YRS & RESTARTED. Past Drug Use History: None Reported Additional Drug Use History / Comment(s): PAST HX OF COCAINE & NARCOTIC ADDICTION. - Past Family History Mother Family Medical History: COPD Additional Family Medical History / Comment(s): Mother at age 62 from complications of COPD Father Family Medical History: Diabetes Mellitus, Hyperlipidemia, Hypertension Additional Family Medical History / Comment(s): hypertension and high cholesterol. Medications and Allergies Home Medications Medication Instructions Recorded Confirmed Type risperiDONE [RisperDAL] 2 mg PO HS 11/17/21 02/25/24 History Atorvastatin [Lipitor] 10 mg PO DAILY 02/25/24 02/25/24 History Montelukast [Singulair] 10 mg PO DAILY 02/25/24 02/25/24 History hydroCHLOROthiazide [Hydrodiuril] 25 mg PO DAILY 02/25/24 02/25/24 History Allergies Allergy/AdvReac Type Severity Reaction Status Date / Time No Known Allergies Allergy Verified 03/24/24 15:06 Surgical - Exam - General moderate distress - Eyes normal ocular movement - ENT no hearing loss - Neck trachea midline - Respiratory normal respiratory effort, clear to auscultation - Cardiovascular Rhythm: regular Heart Sounds: normal: S1, S2 - Abdomen Abdomen: soft, non tender, no guarding, no rigid, no rebound - Integumentary normal turgor - Neurologic no disoriented, no combative - Musculoskeletal normal gait - Psychiatric oriented to time, oriented to person, oriented to place, speech is normal, memory intact Breast Exam: BRA: 34B Inspection: Bilateral grade 2 ptosis Palpation: Right breast: Multi-positional exam mild ecchymosis lateral periareolar region near recent biopsy, no dominant masses or nodules of concern particularly attention to the floor and 12:00 area and no dominant masses or nodules Right axilla: No adenopathy of concern Left breast: Multi-positional exam no dominant masses or nodules of concern Left axilla: No adenopathy of concern Results mammogram and ultrasound personally reviewed interpreted and discussed with Dr. Calixto from radiology these were done [id number], and [id number], 03-15-24. Assessment and Plan Assessment: Impression: Fibrocystic breast changes Pathology felt to be benign and concordant Plan: Repeat right breast mammogram and ultrasound in 6 months with examination at that time Patient to follow up sooner any questions or concerns CC: Dr. Enriquez
== END ==
LOC: WWCWWP 13:56
PROVIDERS: ATTEND Surgery
DX: R92.8 Other abnormal and inconclusive findings on diagnostic imaging of breast (principal); N60.11 Diffuse cystic mastopathy of right breast; N60.12 Diffuse cystic mastopathy of left breast; Z87.891 Personal history of nicotine dependence

== ENCOUNTER → 2024-09-25 | Outpatient (CLI) | payer MEDICARE ==
--- NOTE | 2024-09-25 09:06 | CT ---
EXAMINATION TYPE: CT abdomen pelvis wo con DATE OF EXAM: 09/25/2024 COMPARISON: None CLINICAL INDICATION: Female, 64 years old with history of R10.9 abdominal pain; PHH, acid reflux, gag ging TECHNIQUE: CT scan of the abdomen and pelvis is performed without oral or IV contrast. CT DLP: [address] CTDI: mGy Automated exposure control for dose reduction was used. FINDINGS: Within the limitations of a non-contrast study, the following observations are made. LUNG BASES: No significant abnormality is appreciated. Emphysematous changes. LIVER/GB: Diffuse low attenuation liver compatible hepatic steatosis. There are multiple hypodense le sions involving the liver some of which are too small to characterize. Most likely related to cysts. There is a septated lesion in the left lobe of liver anterior segment with a linear calcification santos suring 2.1 cm and 4 Hounsfield units compatible with a hepatic cyst.. PANCREAS: No significant abnormality is seen. SPLEEN: No significant abnormality is seen. ADRENALS: No significant abnormality is seen. KIDNEYS: There are couple nonobstructing punctate 1 to 2 mm right renal calculi. BOWEL: No structural. Small hiatal hernia.. GENITAL ORGANS: No gross abnormality seen. LYMPH NODES: No greater than 1cm abdominal or pelvic lymph nodes are appreciated. OSSEOUS STRUCTURES: Mild degenerative disc disease with grade 1 anterolisthesis L4-L5. OTHER: No significant additional abnormality is seen. IMPRESSION: 1. Small hiatal hernia. 2. Punctate nonobstructing right renal calculi. 3. Correlate for underlying hepatocellular disease\hepatic steatosis. 4. Hepatic cysts.. [facility], , 09/25/2024 9:03 AM
== END | disposition home or self-care (01) ==
LOC: RADCTMAIN 08:24
PROVIDERS: ATTEND Family Medicine
DX: K44.9 Diaphragmatic hernia without obstruction or gangrene (principal); N20.0 Calculus of kidney; K76.89 Other specified diseases of liver; K21.9 Gastro-esophageal reflux disease without esophagitis
CPT/HCPCS: 74176

== ENCOUNTER 2024-11-03 06:13 | Day surgery (SDC) | payer MEDICARE ==
[2024-11-01 12:15] VITALS: BMI 18.3
[2024-11-03] MEDS: IV FLUID CONTINUATION 1,000 ML IV ONE ×2 (06:28→07:26)
[2024-11-03 06:36] VITALS: TEMP 97.9
[2024-11-03] MEDS: LACTATED RINGERS 1,000 ML IV SCH (06:36)
[2024-11-03] MEDS ORDERED: PROPOFOL 10 MG/ML 20 ML VIAL IV ONE (07:00)
--- NOTE | 2024-11-03 07:26 | P.PCN ---
Date of Procedure: 11/03/24 Procedure(s) Performed: Brief history: Patient is a pleasant 64-year-old white female scheduled for an elective upper endoscopy as well as colonoscopy as a part of evaluation of GERD and screening for history of colon polyps. Procedure performed: Esophagogastroduodenoscopy biopsy Colonoscopy with biopsy Preoperative diagnosis: GERD Screening for history of colon polyps Anesthesia: [facility] [place] Procedure: After informed consent was obtained from the patient was brought into the endoscopy unit and IV sedation was administered by anesthesia under continuous monitoring. Initially upper endoscopy was done. The Olympus GF 160 video endoscope was inserted inserted into the mouth and esophagus intubated without any difficulty and was gradually advanced into the stomach and duodenum and carefully examined. The bulb and second part of the duodenum appeared normal. The scope was then withdrawn into the stomach adequately insufflated with air and upon careful examination the antrum and mild gastritis and biopsies were done from this area. Body, cardia and fundus appeared normal. The scope was then withdrawn into the esophagus. The GE junction was located at 40 cm to the incisors. It appeared regular with no erythema erosions or ulcerations. There is a 3 mm island of Rose's appearing mucosa just proximal to the GE junction that was biopsied. Rest of the esophagus appeared normal. Patient tolerated the procedure well. At this time the patient continued to remain sedation. Initial digital rectal examination was normal. Olympus CF 160 video colonoscope was then inserted into the rectum and gradually advanced to the cecum without any difficulty. Careful examination was performed as the scope was gradually being withdrawn. The prep was excellent. The cecum, ascending colon, transverse colon, normal. In the descending colon there was a 4 mm polyp removed by cold biopsy. In the sigmoid colon there was a 3 mm polyp removed by cold biopsy. In the rectum there was a 4 mm polyp removed by cold biopsy. Scattered left-sided diverticulosis seen. Retroflexion was performed in the rectum and no lesions were noted. Patient tolerated the procedure well. Impression: 1. Upper endoscopy revealed mild antral gastritis and a 3 mm island of Rose's appearing mucosa proximal to the GE junction that was biopsied 2. Colonoscopy revealed: 4 mm descending colon polyp status post cold biopsy 3 mm sigmoid colon polyp status post cold biopsy 4 mm rectal polyp status post cold biopsy scattered sigmoid diverticulosis Recommendations: Findings of this examination were discussed with the patient as well as her family. She was advised to follow-up with the biopsy results. Continue with omeprazole 20 mg daily and follow antireflux measures. If the biopsy reveals adenoma she can have repeat colonoscopy in 3 years.
[2024-11-03 07:32] VITALS: RESP 16
[2024-11-03 07:43] VITALS: BP 131/90; PULSE 83
== END 2024-11-03 08:26 | disposition home or self-care (01) ==
LOC: ORWHC2ENDO 06:13
PROVIDERS: ATTEND Internal Medicine Gastroenterology
DX: Z12.11 Encounter for screening for malignant neoplasm of colon (principal); D12.4 Benign neoplasm of descending colon; K29.50 Unspecified chronic gastritis without bleeding; K62.1 Rectal polyp; K21.00 Gastro-esophageal reflux disease with esophagitis, without bleeding; K22.70 Barrett's esophagus without dysplasia; K57.30 Diverticulosis of large intestine without perforation or abscess without bleeding; K31.A11 Gastric intestinal metaplasia without dysplasia, involving the antrum; B96.81 Helicobacter pylori [H. pylori] as the cause of diseases classified elsewhere; I10 Essential (primary) hypertension; J44.9 Chronic obstructive pulmonary disease, unspecified; F17.210 Nicotine dependence, cigarettes, uncomplicated; F41.9 Anxiety disorder, unspecified; F31.9 Bipolar disorder, unspecified; Z79.899 Other long term (current) drug therapy
CPT/HCPCS: 88305; 88342; 45380; 43239; J2704

== ENCOUNTER → 2024-12-04 | Outpatient (CLI) | payer MEDICARE ==
--- NOTE | 2024-12-04 13:50 | CTL ---
EXAMINATION TYPE: CT Low Dose Lung DATE OF EXAM ORDERED: 12/04/2024 COMPARISON: CT Low Dose Lung 11/17/2023, 11/13/2022 CLINICAL INDICATION: Female, 64 years old with history of Z12.2 Screening; F17.210 Nicotine dependenc e; PHH, Current smoker, 1 ppd x 40 years, Lung cancer screening, History of Smoking/tobacco use. TECHNIQUE: Low dose computed tomography scan was performed through the chest at 1 mm thick sections a nd reconstructed images in multiple planes at 1 mm and [address] DLP: [address] CTDI: 1.57 mGy Automated exposure control for dose reduction was used. CT DIAGNOSTIC QUALITY: Satisfactory FINDINGS: Nodules: No clinically significant pulmonary nodules. LUNGS: COPD: Severity: None Fibrosis: Severity: None Lymph nodes: None Other findings: Minimal biapical pleural-parenchymal scarring. RIGHT PLEURAL SPACE: Effusion: None Calcification: None Thickening: None Pneumothorax: None LEFT PLEURAL SPACE: Effusion: None Calcification: None Thickening: None Pneumothorax: None HEART: Heart Size: Normal Coronary Calcification: None Pericardial Effusion: None OTHER FINDINGS: Upper abdomen: Few stable hepatic cysts with largest in the anterior liver measuring up to 2.4 cm. Bony thorax: Dextroscoliotic curvature of the thoracic spine. Supraclavicular region: None Other: None IMPRESSION: No clinically significant pulmonary nodules. CT LUNG RAD AND CT CHEST RECOMMENDATION: Lung-Rad 1 Negative: Continue annual screening with LDCT in 12 months. S Modifier (other clinically significant findings): None [facility], , 12/04/2024 1:48 PM
== END | disposition home or self-care (01) ==
LOC: RADCTMAIN 13:00
PROVIDERS: ATTEND Family Medicine
DX: Z12.2 Encounter for screening for malignant neoplasm of respiratory organs (principal); F17.210 Nicotine dependence, cigarettes, uncomplicated
CPT/HCPCS: 71271

== ENCOUNTER 2025-01-07 11:40 | Inpatient (IN) | payer MEDICARE ==
[2025-01-07] MEDS: SODIUM CHLORIDE 0.9% 1,000 ML IV ONE (12:42)
--- NOTE | 2025-01-07 12:57 | XR ---
EXAMINATION TYPE: XR chest 2V DATE OF EXAM: 01/07/2025 CLINICAL INDICATION: Female, 64 years old with history of Weakness, TECHNIQUE: Frontal and lateral views of the chest are obtained. COMPARISON: Chest x-ray 2016 FINDINGS: Persistent dextroconvex scoliosis centered in the midthoracic spine. There is no focal air space opacity, pleural effusion, or pneumothorax seen. The cardiac silhouette size is within normal limits. IMPRESSION: No acute cardiopulmonary process. [facility], , 01/07/2025 12:54 PM
[2025-01-07 13:03] LABS: Basophils # (A) 0.03 10*3/uL (0.00-0.10); Basophils % (A) 0.3 %; Eosinophils # (A) 0.08 10*3/uL (0.04-0.35); Eosinophils % (A) 0.9 %; HCT 41.9 % (37.2-46.3); HGB 15.1 g/dL (12.0-15.0); Lymphocytes # (A) 1.72 10*3/uL (0.90-5.00); Lymphocytes % (A) 19.3 %; MCH 36.8 pg (27.0-32.0); MCV 102.2 fL (80.0-97.0); Monocytes # (A) 0.91 10*3/uL (0.20-1.00); Monocytes % (A) 10.2 %; Neutrophils # (A) 6.14 10*3/uL (1.80-7.70); Neutrophils % (A) 69.1 %; Platelet Count 142 10*3/uL (140-440); RDW 12.5 % (11.5-14.5)
[2025-01-07 13:12] LABS: Appearance,Urine Cloudy (Clear); Bacteria,Urine Moderate /hpf; Bilirubin,Urine 1+ (Negative); Blood,Urine Small (Negative); Color,Urine Yellow; Glucose,Urine (UA) Negative (Negative); Hyaline Casts,Urine 7 /lpf (0-2); Ketones,Urine 3+ (Negative); Leukocyte Esterase,Urine Negative (Negative); Mucus,Urine Few /hpf; Nitrite,Urine Negative (Negative); Protein,Urine 2+ (Negative); RBC,Urine 8 /hpf (0-5); Specific Gravity,Urine 1.023 (1.001-1.035); Squamous Epithelial Cell,Urine 14 /hpf (0-4); WBC,Urine 2 /hpf (0-5)
--- NOTE | 2025-01-07 13:16 | CT ---
EXAMINATION TYPE: CT abdomen pelvis w con DATE OF EXAM: 01/07/2025 COMPARISON: Prior CT September 25, 2024 CLINICAL INDICATION: Female, 64 years old with history of RLQ pain, RLQ abdominal pain, TECHNIQUE: CT scan of the abdomen and pelvis is performed with IV Contrast, patient injected with 100 mL of Isov ue 300., (none if empty) Oral contrast used: without Oral Contrast (none if empty) CT DLP: 413.8 mGycm, Automated exposure control for dose reduction was used. FINDINGS: LUNG BASES: No significant abnormality is appreciated. LIVER/GB: Liver remains heterogeneously hypodense consistent with diffuse fatty infiltrative hepatoce llular disease. Stable 1.9 cm probable thin-walled cyst anterior liver axial image 16. PANCREAS: Pancreas more prominent in the head and proximal body with surrounding ill-defined fluid ex tending inferiorly and extending inferior to the level of the third portion of duodenum. No areas of nonenhancement. No formed fluid collection. No ductal dilatation. SPLEEN: No significant abnormality is seen. ADRENALS: No significant abnormality is seen. KIDNEYS: A few punctate 1 to 2 mm right renal calculi are redemonstrated. BOWEL: Mild to moderate wall thickening in the right colon. Mild wall thickening in the transverse co dejan. A few distal colonic diverticula. No CT evidence for acute diverticulitis. No abnormal small or large bowel dilatation. UTERUS/ADNEXA: No gross abnormality seen. LYMPH NODES: No greater than 1cm abdominal or pelvic lymph nodes are appreciated. OSSEOUS STRUCTURES: Levoconvex scoliosis centered at L4 level redemonstrated. Mild to moderate disc s pace narrowing at L4-L5 level redemonstrated. Moderate narrowing of both hip joints. OTHER: No significant additional abnormality is seen. IMPRESSION: Suspect acute edematous interstitial pancreatitis causing reactive acute enterocolitis. C orrelate clinically and with pancreatic lab values. [facility], , 01/07/2025 1:13 PM
[2025-01-07 13:18] LABS: ALT 67 U/L (4-34); AST 124 U/L (14-36); African American GFR (CKD) >90 (>60 ml/min/1.73 sqM); Alkaline Phosphatase 66 U/L (38-126); Anion Gap 16 mmol/L; Blood Urea Nitrogen 12 mg/dL (7-17); Calcium 9.5 mg/dL (8.4-10.2); Carbon Dioxide 26 mmol/L (22-30); Chloride 94 mmol/L (98-107); Glucose 67 mg/dL (74-99); Magnesium 1.4 mg/dL (1.6-2.3); Non-African American GFR(CKD) 79 (>60 ml/min/1.73 sqM); Potassium 3.7 mmol/L (3.5-5.1); Sodium 136 mmol/L (137-145); Total Bilirubin 1.1 mg/dL (0.2-1.3); Total Protein 6.2 g/dL (6.3-8.2)
[2025-01-07 13:26] LABS: INR 0.9 (<1.2); Partial Thromboplastin Time 21.8 sec (22.0-30.0); Prothrombin Time 10.4 sec (10.0-12.5)
--- NOTE | 2025-01-07 13:28 | ED ---
Weakness HPI - General Chief complaint: Weakness Stated complaint: Weakness Time Seen by Provider: 01/07/25 11:53 Source: patient Mode of arrival: ambulatory Limitations: no limitations - History of Present Illness Initial comments: 64-year-old female presenting with chief complaint of weakness. Patient reports that for the last week or so she has had increased weakness. She also reports that she has been "gagging" for a few weeks. She admits to a cough and states that she gags afterwards, she also does this without coughing though. She admits to pain in her right side. This started today. She denies any chest pain or difficulty breathing. She is a pack per day smoker and a daily drinker. She states that she normally drinks "3 drinks" per day. She denies vomiting. She denies fever. She denies diarrhea, hematochezia, melena. - Related Data Home Medications Medication Instructions Recorded Confirmed Montelukast [Singulair] 10 mg PO HS 02/25/24 01/07/25 Omeprazole 40 mg PO DAILY 11/01/24 01/07/25 Fluticasone Nasal [place] [Flonase 1 spray EA NOSTRIL BID 01/07/25 01/07/25 Nasal Arma] Thiamine HCl [Vitamin B-1] 100 mg PO DAILY 01/07/25 01/07/25 risperiDONE 2 mg PO HS 01/07/25 01/07/25 Allergies Allergy/AdvReac Type Severity Reaction Status Date / Time No Known Allergies Allergy Verified 01/07/25 16:36 Review of Systems ROS Statement: Those systems with pertinent positive or pertinent negative responses have been documented in the HPI. ROS Other: All systems not noted in ROS Statement are negative. Past Medical History Past Medical History: COPD, Rheumatoid Arthritis (RA) Additional Past Medical History / Comment(s): DDD History of Any Multi-Drug Resistant Organisms: None Reported Past Surgical History: No Surgical Hx Reported Additional Past Surgical History / Comment(s): LESION OFF OVARY, D & C., COLONOSCOPY. Past Anesthesia/Blood Transfusion Reactions: No Reported Reaction Past Psychological History: Anxiety, Bipolar, Depression Smoking Status: Former smoker Past Alcohol Use History: Heavy Past Drug Use History: None Reported - Past Family History Mother Family Medical History: COPD Additional Family Medical History / Comment(s): Mother at age 62 from complications of COPD Father Family Medical History: Diabetes Mellitus, Hyperlipidemia, Hypertension Additional Family Medical History / Comment(s): hypertension and high cholesterol. General Exam Limitations: no limitations General appearance: alert, in no apparent distress Head exam: Present: atraumatic, normocephalic, normal inspection Eye exam: Present: normal appearance, EOMI Neck exam: Present: normal inspection. Absent: meningismus Respiratory exam: Present: normal lung sounds bilaterally. Absent: respiratory distress, wheezes, rales, rhonchi, stridor Cardiovascular Exam: Present: regular rate, normal rhythm, normal heart sounds. Absent: systolic murmur, diastolic murmur, rubs, gallop, clicks GI/Abdominal exam: Present: soft, tenderness. Absent: distended, guarding, rebound, rigid Neurological exam: Present: alert, oriented X3 Psychiatric exam: Present: normal affect, normal mood Skin exam: Present: warm, dry Course Vital Signs 01/07/25 01/07/25 01/07/25 11:42 14:24 17:37 Temperature 97.4 F L Pulse Rate 98 82 66 Respiratory 20 17 18 Rate Blood Pressure 131/90 106/75 111/76 O2 Sat by Pulse 99 97 97 Oximetry 01/07/25 01/07/25 19:32 21:10 Temperature 98.0 F Pulse Rate 80 79 Respiratory 18 17 Rate Blood Pressure 126/103 117/79 O2 Sat by Pulse 98 Oximetry Medical Decision Making - Medical Decision Making EKG shows sinus rhythm ventricular rate 63. MO interval 148. QRS 87. QT 441. QTc 447. Was pt. sent in by a medical professional or institution (, PA, METAL TRIM ERECTOR, urgent care, hospital, or skilled nursing...) When possible be specific @ -No Did you speak to anyone other than the patient for history (EMS, parent, family, police, friend...)? What history was obtained from this source @ -No Did you review nursing and triage notes (agree or disagree)? Why? @ -I reviewed and agree with nursing and triage notes Were old charts reviewed (outside hosp., previous admission, EMS record, old EKG, old radiological studies, urgent care reports/EKG's, skilled nursing records)? Report findings @ -No old charts were reviewed Differential Diagnosis (chest pain, altered mental status, abdominal pain women, abdominal pain men, vaginal bleeding, weakness, fever, dyspnea, syncope, headache, dizziness, GI bleed, back pain, seizure, CVA, palpatations, mental health, musculoskeletal)? @ -[facility] Differential Weakness: Hypoglycemia, shock, sepsis, hyponatremia, anemia, infection, TX, ETOH, adverse medicine reaction, overdose, stroke. ... This is not meant to be an all- inclusive list EKG interpreted by me (3pts min.). @ -As above X-rays interpreted by me (1pt min.). @ -Chest x-ray shows no acute process CT interpreted by me (1pt min.). @ -CT shows suspected acute edematous interstitial pancreatitis causing reactive acute enterocolitis. Correlate clinically with pancreatic lab values U/S interpreted by me (1pt. min.). @ -None done What testing was considered but not performed or refused? (CT, X-rays, U/S, labs)? Why? @ -None What meds were considered but not given or refused? Why? @ -None Did you discuss the management of the patient with other professionals (professionals i.e. , PA, METAL TRIM ERECTOR, lab, RT, psych nurse, social sciences research scientist, building guard deputy sheriff, teacher, chief media officer, case folder)? Give summary @ -Spoke with Dr. Weldon who accepts admission, also advises antibiotics and surgery consult Was smoking cessation discussed for >3mins.? @ -No Was critical care preformed (if so, how long)? @ -No Were there social determinants of health that impacted care today? How? (Homelessness, low income, unemployed, alcoholism, drug addiction, transportation, low edu. Level, literacy, decrease access to med. care, fdc, rehab)? @ -No Was there de-escalation of care discussed even if they declined (Discuss DNR or withdrawal of care, Hospice)? DNR status @ -No What co-morbidities impacted this encounter? (DM, HTN, Smoking, COPD, CAD, Cancer, CVA, ARF, Chemo, Hep., AIDS, mental health diagnosis, sleep apnea, morbid obesity)? @ -None Was patient admitted / discharged? Hospital course, mention meds given and route, prescriptions, significant lab abnormalities, going to OR and other pertinent info. @ -64-year-old female presenting with chief complaint of weakness, nausea, and abdominal pain. Patient is an alcoholic. History and physical examination are conducted. No leukocytosis. Hemoglobin 15.1. Glucose was low at 67, recheck is 70. Lactic acid 2.6. Magnesium 1.4, patient is receiving IV replacement. Amylase [address] confirms edematous interstitial pancreatitis with reactive enterocolitis. Patient is on IV fluids as well as pain meds and antiemetics. Patient is educated on today's findings. She will require admission. She is placed on CIWA protocol. Patient was also started on antibiotics per the admitting physician. I discussed this case with my attending Dr. Morton Undiagnosed new problem with uncertain prognosis? @ -No Drug Therapy requiring intensive monitoring for toxicity (Heparin, Nitro, Insulin, Cardizem)? @ -No Were any procedures done? @ -No Diagnosis/symptom? @ -Pancreatitis Acute, or Chronic, or Acute on Chronic? @ -Acute Uncomplicated (without systemic symptoms) or Complicated (systemic symptoms)? @ -Complicated Side effects of treatment? @ -No Exacerbation, Progression, or Severe Exacerbation? @ -No Poses a threat to life or bodily function? How? (Chest pain, USA, TX, pneumonia, PE, COPD, DKA, ARF, appy, cholecystitis, CVA, Diverticulitis, Homicidal, Suicidal, threat to staff... and all critical care pts) @ -Yes - Lab Data Result diagrams: 01/07/25 12:03 01/07/25 12:03 Lab Results 01/07/25 01/07/25 01/07/25 Range/Units 12:03 12:03 12:03 WBC 8.90 (4.50-10.00) 10*3/uL RBC 4.10 (4.10-5.20) 10*6/uL Hgb 15.1 H (12.0-15.0) g/dL Hct 41.9 (37.2-46.3) % MCV 102.2 H (80.0-97.0) fL MCH 36.8 H (27.0-32.0) pg MCHC 36.0 (32.0-37.0) g/dL Plt Count 142 (140-440) 10*3/uL MPV 10.0 (9.5-12.2) fL Immature Gran % (Auto) 0.2 % Neutrophils % 69.1 % Lymphocytes % 19.3 % Monocytes % 10.2 % Eosinophils % 0.9 % Basophils % 0.3 % Immature Gran # 0.02 (0.00-0.04) 10*3/uL Neutrophils # 6.14 (1.80-7.70) 10*3/uL Lymphocytes # 1.72 (0.90-5.00) 10*3/uL Monocytes # 0.91 (0.20-1.00) 10*3/uL Eosinophils # 0.08 (0.04-0.35) 10*3/uL Basophils # 0.03 (0.00-0.10) 10*3/uL PT 10.4 (10.0-12.5) sec INR 0.9 (<1.2) APTT 21.8 L (22.0-30.0) sec Sodium 136 L (137-145) mmol/L Potassium 3.7 (3.5-5.1) mmol/L Chloride 94 L (98-107) mmol/L Carbon Dioxide 26 (22-30) mmol/L Anion Gap 16 mmol/L BUN 12 (7-17) mg/dL Creatinine 0.80 (0.52-1.04) mg/dL Est GFR (CKD-EPI)AfAm >90 (>60 ml/min/1.73 sqM) Est GFR (CKD-EPI)NonAf 79 (>60 ml/min/1.73 sqM) Glucose 67 L (74-99) mg/dL POC Glucose (mg/dL) (70-110) mg/dL POC Glu Ethylbenzene Oxidizer ID Lactic Ac Sepsis Rflx Plasma Lactic Acid Tanvir (0.7-2.0) mmol/L Calcium 9.5 (8.4-10.2) mg/dL Magnesium 1.4 L (1.6-2.3) mg/dL Total Bilirubin 1.1 (0.2-1.3) mg/dL AST 124 H (14-36) U/L ALT 67 H (4-34) U/L Alkaline Phosphatase 66 (38-126) U/L Total Protein 6.2 L (6.3-8.2) g/dL Albumin 4.0 (3.5-5.0) g/dL Amylase (30-110) U/L Lipase 3652 H (23-300) U/L Urine Color Urine Appearance (Clear) Urine pH (5.0-8.0) Ur Specific [place] (1.001-1.035) Urine Protein (Negative) Urine Glucose (UA) (Negative) Urine Ketones (Negative) Urine Blood (Negative) Urine Nitrite (Negative) Urine Bilirubin (Negative) Urine Urobilinogen (<2.0) mg/dL Ur Leukocyte Esterase (Negative) Urine RBC (0-5) /hpf Urine WBC (0-5) /hpf Ur Squamous Epith Cells (0-4) /hpf Urine Bacteria (None) /hpf Hyaline Casts (0-2) /lpf Urine Mucus (None) /hpf 01/07/25 01/07/25 01/07/25 Range/Units 12:03 12:03 12:04 WBC (4.50-10.00) 10*3/uL RBC (4.10-5.20) 10*6/uL Hgb (12.0-15.0) g/dL Hct (37.2-46.3) % MCV (80.0-97.0) fL MCH (27.0-32.0) pg MCHC (32.0-37.0) g/dL Plt Count (140-440) 10*3/uL MPV (9.5-12.2) fL Immature Gran % (Auto) % Neutrophils % % Lymphocytes % % Monocytes % % Eosinophils % % Basophils % % Immature Gran # (0.00-0.04) 10*3/uL Neutrophils # (1.80-7.70) 10*3/uL Lymphocytes # (0.90-5.00) 10*3/uL Monocytes # (0.20-1.00) 10*3/uL Eosinophils # (0.04-0.35) 10*3/uL Basophils # (0.00-0.10) 10*3/uL PT (10.0-12.5) sec INR (<1.2) APTT (22.0-30.0) sec Sodium (137-145) mmol/L Potassium (3.5-5.1) mmol/L Chloride (98-107) mmol/L Carbon Dioxide (22-30) mmol/L Anion Gap mmol/L BUN (7-17) mg/dL Creatinine (0.52-1.04) mg/dL Est GFR (CKD-EPI)AfAm (>60 ml/min/1.73 sqM) Est GFR (CKD-EPI)NonAf (>60 ml/min/1.73 sqM) Glucose (74-99) mg/dL POC Glucose (mg/dL) (70-110) mg/dL POC Glu Ethylbenzene Oxidizer ID Lactic Ac Sepsis Rflx Plasma Lactic Acid Tanvir 2.6 H* (0.7-2.0) mmol/L Calcium (8.4-10.2) mg/dL Magnesium (1.6-2.3) mg/dL Total Bilirubin (0.2-1.3) mg/dL AST (14-36) U/L ALT (4-34) U/L Alkaline Phosphatase (38-126) U/L Total Protein (6.3-8.2) g/dL Albumin (3.5-5.0) g/dL Amylase 179 H (30-110) U/L Lipase (23-300) U/L Urine Color Yellow Urine Appearance Cloudy H (Clear) Urine pH 6.0 (5.0-8.0) Ur Specific [place] 1.023 (1.001-1.035) Urine Protein 2+ H (Negative) Urine Glucose (UA) Negative (Negative) Urine Ketones 3+ H (Negative) Urine Blood Small H (Negative) Urine Nitrite Negative (Negative) Urine Bilirubin 1+ H (Negative) Urine Urobilinogen 2.0 (<2.0) mg/dL Ur Leukocyte Esterase Negative (Negative) Urine RBC 8 H (0-5) /hpf Urine WBC 2 (0-5) /hpf Ur Squamous Epith Cells 14 H (0-4) /hpf Urine Bacteria Moderate H (None) /hpf Hyaline Casts 7 H (0-2) /lpf Urine Mucus Few H (None) /hpf 01/07/25 01/07/25 Range/Units 13:37 14:25 WBC (4.50-10.00) 10*3/uL RBC (4.10-5.20) 10*6/uL Hgb (12.0-15.0) g/dL Hct (37.2-46.3) % MCV (80.0-97.0) fL MCH (27.0-32.0) pg MCHC (32.0-37.0) g/dL Plt Count (140-440) 10*3/uL MPV (9.5-12.2) fL Immature Gran % (Auto) % Neutrophils % % Lymphocytes % % Monocytes % % Eosinophils % % Basophils % % Immature Gran # (0.00-0.04) 10*3/uL Neutrophils # (1.80-7.70) 10*3/uL Lymphocytes # (0.90-5.00) 10*3/uL Monocytes # (0.20-1.00) 10*3/uL Eosinophils # (0.04-0.35) 10*3/uL Basophils # (0.00-0.10) 10*3/uL PT (10.0-12.5) sec INR (<1.2) APTT (22.0-30.0) sec Sodium (137-145) mmol/L Potassium (3.5-5.1) mmol/L Chloride (98-107) mmol/L Carbon Dioxide (22-30) mmol/L Anion Gap mmol/L BUN (7-17) mg/dL Creatinine (0.52-1.04) mg/dL Est GFR (CKD-EPI)AfAm (>60 ml/min/1.73 sqM) Est GFR (CKD-EPI)NonAf (>60 ml/min/1.73 sqM) Glucose (74-99) mg/dL POC Glucose (mg/dL) 70 (70-110) mg/dL POC Glu Ethylbenzene Oxidizer ID Kira Alvarez Lactic Ac Sepsis Rflx Y Plasma Lactic Acid Tanvir (0.7-2.0) mmol/L Calcium (8.4-10.2) mg/dL Magnesium (1.6-2.3) mg/dL Total Bilirubin (0.2-1.3) mg/dL AST (14-36) U/L ALT (4-34) U/L Alkaline Phosphatase (38-126) U/L Total Protein (6.3-8.2) g/dL Albumin (3.5-5.0) g/dL Amylase (30-110) U/L Lipase (23-300) U/L Urine Color Urine Appearance (Clear) Urine pH (5.0-8.0) Ur Specific [place] (1.001-1.035) Urine Protein (Negative) Urine Glucose (UA) (Negative) Urine Ketones (Negative) Urine Blood (Negative) Urine Nitrite (Negative) Urine Bilirubin (Negative) Urine Urobilinogen (<2.0) mg/dL Ur Leukocyte Esterase (Negative) Urine RBC (0-5) /hpf Urine WBC (0-5) /hpf Ur Squamous Epith Cells (0-4) /hpf Urine Bacteria (None) /hpf Hyaline Casts (0-2) /lpf Urine Mucus (None) /hpf Disposition Clinical Impression: Pancreatitis Disposition: ADMITTED IP TO THIS HOSP Condition: Fair
[2025-01-07 13:44] LABS: Lipase 3652 U/L (23-300)
[2025-01-07] MEDS ORDERED: LORazepam 2 MG/ML INJ IV PRN ×2 (14:06)
[2025-01-07] MEDS: LACTATED RINGERS 1,000 ML IV SCH ×2 (14:23→14:27)
[2025-01-07 14:32] LABS: Glucose,Whole Blood 70 mg/dL (70-110)
[2025-01-07] MEDS ORDERED: ONDANSETRON 4 MG/2 ML VIAL IVP PRN (15:20)
[2025-01-07] MEDS ORDERED: MORPHINE SULFATE 4 MG/ML SYRINGE IVP PRN (15:20)
[2025-01-07] MEDS: THIAMINE 100 MG/ML 2 ML VIAL IM STA (15:26)
[2025-01-07] MEDS ORDERED: Magnesium Replacement Protocol 1 EACH MISC MISCELLANE PRN (15:27)
[2025-01-07] MEDS ORDERED: NALOXONE 0.4 MG/ML 1 ML VIAL IV PRN (15:27)
[2025-01-07] MEDS: MAGNESIUM SULFATE-D5W PMX 1 GM in DEXTROSE/WATER 1 100ML.BAG IVPB SCH (16:47)
[2025-01-07] MEDS: cefTRIAXone IN SWFI 1,000 MG/10 ML SYRINGE IVP STA (16:47)
[2025-01-07] MEDS: metroNIDAZOLE-NS PMX 500 MG in SALINE 1 100ML.BAG IVPB STA (16:48)
[2025-01-07] MEDS: LACTATED RINGERS 1,000 ML IV ONE (19:32)
[2025-01-07] MEDS: LORazepam 2 MG/ML INJ IV PRN (21:03)
[2025-01-08 01:53] LABS: Glucose,Whole Blood 86 mg/dL (70-110)
[2025-01-08] MEDS ORDERED: LORazepam 1 MG/0.5 ML VIAL IV PRN ×2 (02:06→02:08)
[2025-01-08] MEDS: LORazepam 1 MG/0.5 ML VIAL IV PRN (02:34)
[2025-01-08 08:20] LABS: HCT 42.8 % (37.2-46.3); HGB 14.7 g/dL (12.0-15.0); MCH 36.2 pg (27.0-32.0); MCHC 34.3 g/dL (32.0-37.0); MCV 105.4 FL (80.0-97.0); Mean Platelet Volume 12.1 FL (9.5-12.2); NRBC Per 100 WBC 0 X 10*3/uL (0.00-0.01); Platelet Count 152 X 10*3/uL (140-440); RBC 4.06 X 10*6/uL (4.10-5.20); RDW 13.1 % (11.5-14.5); WBC 10.03 X 10*3/uL (4.50-10.00)
[2025-01-08 08:34] LABS: ALT 53 U/L (8-44); AST 93 U/L (13-35); Albumin 3.6 g/dL (3.8-4.9); Albumin/Globulin Ratio 2.25 Ratio (1.60-3.17); Alkaline Phosphatase 62 U/L (41-126); BUN/Creat Ratio 12.43 Ratio (12.00-20.00); Blood Urea Nitrogen 8.7 mg/dL (9.0-27.0); Calcium 8.3 mg/dL (8.7-10.3); Carbon Dioxide 21.1 mmol/L (21.6-31.8); Chloride 94 mmol/L (96-109); Globulin 1.6 g/dL (1.6-3.3); Glucose 66 mg/dL (70-110); Magnesium 1.8 mg/dL (1.5-2.4); Potassium 3.7 mmol/L (3.5-5.5); Sodium 137 mmol/L (135-145); Total Bilirubin 0.7 mg/dL (0.3-1.2); Total Protein 5.2 g/dL (6.2-8.2)
[2025-01-08 09:12] LABS: Basophils # (A) 0.03 X 10*3/uL (0.00-0.10); Basophils % (A) 0.3 %; Eosinophils # (A) 0.12 X 10*3/uL (0.04-0.35); Eosinophils % (A) 1.2 %; Lymphocytes # (A) 1.27 X 10*3/uL (0.90-5.00); Lymphocytes % (A) 12.7 %; Macrocytosis (M) 2+ (None Seen); Monocytes # (A) 0.92 X 10*3/uL (0.20-1.00); Monocytes % (A) 9.2 %; Neutrophils # (A) 7.66 X 10*3/uL (1.80-7.70); Neutrophils % (A) 76.3 %
[2025-01-08] MEDS: FLUTICASONE NASAL 50MCG/SPRAY 16GM BTL EA NOSTRIL SCH (10:23)
--- NOTE | 2025-01-08 12:51 | P.GSCN ---
History of Present Illness Consult date: 01/08/25 History of present illness: CHIEF COMPLAINT: Abdominal pain HISTORY OF PRESENT ILLNESS: This is a 64-year-old female who presented to the hospital with complaints of epigastric abdominal pain. She reports the pain started yesterday. She did have nausea. Denies any vomiting. She reports her last bowel movement was 2 days ago. She is having flatus. Patient reports that she drinks 3 glasses of whiskey daily. She she still has her gallbladder. Patient was found to have evidence of pancreatitis causing enterocolitis noted on CAT scan. Lipase was elevated. Patient reports her last colonoscopy was in this last year and reported as negative. Patient denies any abdominal surgical history. PAST MEDICAL HISTORY: COPD, rheumatoid arthritis, anxiety, bipolar, depression PAST SURGICAL HISTORY: none MEDICATIONS: See below ALLERGIES: See below SOCIAL HISTORY: No illicit drug use. REVIEW OF SYSTEMS: CONSTITUTIONAL: Denies fever or chills. HEENT: Denies blurred vision, vision changes, or eye pain. Denies hemoptysis CARDIOVASCULAR: Denies chest pain or pressure. RESPIRATORY: No shortness of breath. GASTROINTESTINAL: See HPI for pertinent findings HEMATOLOGIC: Denies bleeding disorders. GENITOURINARY: Denies any blood in urine or increased urinary frequency. SKIN: Denies pruitis. Denies rash. PHYSICAL EXAM: VITAL SIGNS: Reviewed GENERAL: Well-developed in no acute distress. HEENT: No sclera icterus. Extraocular movements grossly intact. Moist buccal mucosa. Head is atraumatic, normocephalic. No nasal drainage. ABDOMEN: Soft. Nondistended. Tenderness palpation epigastric area. No rebound or guarding noted. NEUROLOGIC: Alert and oriented. Cranial nerves II through XII grossly intact. LABORATORY DATA: WBCs 10.03 Hgb 14.7 platelets 152 Sodium is 137 potassium 3.7 creatinine 0.7 Lactic acid 2.4 down to 1.0 Magnesium 1.5 Total bilirubin 0.7 AST 93 ALT 53 alk phos 62 Lipase 3652 amylase 179 IMAGING: CT scan abdomen pelvis suspect acute edematous interstitial pancreatitis causing reactive acute enterocolitis. ASSESSMENT: 1. 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 except for ice chips - Continue IV fluids - Continue pain management - Continue [facility] protocol for alcohol withdrawal - Magnesium being replaced - Educated patient on alcohol cessation Physician Talent Consultant note has been reviewed by physician. Signing provider agrees with the documented findings, assessment, and plan of care. Past Medical History Past Medical History: COPD, Rheumatoid Arthritis (RA) Additional Past Medical History / Comment(s): DDD History of Any Multi-Drug Resistant Organisms: None Reported Past Surgical History: No Surgical Hx Reported Additional Past Surgical History / Comment(s): LESION OFF OVARY, D & C., COLONOSCOPY. Past Anesthesia/Blood Transfusion Reactions: No Reported Reaction Past Psychological History: Anxiety, Bipolar, Depression Smoking Status: Current every day smoker Past Alcohol Use History: Heavy Additional Past Alcohol Use History / Comment(s): DRINKS alcohol 2 times weekly, 3 drinks at a time. QUIT SMOKING 2 MONTHS AGO, STARTED AGE 17, SMOKED 1 PPD, QUIT FOR 10-15 YRS & RESTARTED. Past Drug Use History: None Reported Additional Drug Use History / Comment(s): PAST HX OF COCAINE & NARCOTIC ADDICTION. - Past Family History Mother Family Medical History: COPD Additional Family Medical History / Comment(s): Mother at age 62 from complications of COPD Father Family Medical History: Diabetes Mellitus, Hyperlipidemia, Hypertension Additional Family Medical History / Comment(s): hypertension and high cholesterol. Medications and Allergies Home Medications Medication Instructions Recorded Confirmed Type Montelukast [Singulair] 10 mg PO HS 02/25/24 01/07/25 History Omeprazole 40 mg PO DAILY 11/01/24 01/07/25 History Fluticasone Nasal [place] [Flonase 1 spray EA NOSTRIL BID 01/07/25 01/07/25 History Nasal [place]] Thiamine HCl [Vitamin B-1] 100 mg PO DAILY 01/07/25 01/07/25 History risperiDONE 2 mg PO HS 01/07/25 01/07/25 History Allergies Allergy/AdvReac Type Severity Reaction Status Date / Time No Known Allergies Allergy Verified 01/07/25 16:36 Surgical - Exam Osteopathic Statement: *. No significant issues noted on an osteopathic structural exam other than those noted in the History and Physical/Consult. Vital Signs Temp Pulse Resp BP Pulse Ox 97.4 F L 98 20 131/90 99 01/07/25 11:42 01/07/25 11:42 01/07/25 11:42 01/07/25 11:42 01/07/25 11:42 Results - Labs 01/08/25 00:15 01/08/25 00:19 Abnormal Lab Results - Last 24 Hours (Table) 01/07/25 01/07/25 01/07/25 Range/Units 12:03 12:03 12:03 WBC (4.50-10.00) X 10*3/uL RBC (4.10-5.20) X 10*6/uL Hgb 15.1 H (12.0-15.0) g/dL MCV 102.2 H (80.0-97.0) fL MCH 36.8 H (27.0-32.0) pg Macrocytosis (manual) (None Seen) APTT 21.8 L (22.0-30.0) sec Sodium 136 L (137-145) mmol/L Chloride 94 L (98-107) mmol/L Carbon Dioxide (21.6-31.8) mmol/L Anion Gap (4.00-12.00) mmol/L BUN (9.0-27.0) mg/dL Glucose 67 L (74-99) mg/dL Plasma Lactic Acid Tanvir (0.7-2.0) mmol/L Calcium (8.7-10.3) mg/dL Magnesium 1.4 L (1.6-2.3) mg/dL AST 124 H (14-36) U/L ALT 67 H (4-34) U/L Total Protein 6.2 L (6.3-8.2) g/dL Albumin (3.8-4.9) g/dL Amylase (30-110) U/L Lipase 3652 H (23-300) U/L Urine Appearance (Clear) Urine Protein (Negative) Urine Ketones (Negative) Urine Blood (Negative) Urine Bilirubin (Negative) Urine RBC (0-5) /hpf Ur Squamous Epith Cells (0-4) /hpf Urine Bacteria (None) /hpf Hyaline Casts (0-2) /lpf Urine Mucus (None) /hpf 01/07/25 01/07/25 01/07/25 Range/Units 12:03 12:03 12:04 WBC (4.50-10.00) X 10*3/uL RBC (4.10-5.20) X 10*6/uL Hgb (12.0-15.0) g/dL MCV (80.0-97.0) fL MCH (27.0-32.0) pg Macrocytosis (manual) (None Seen) APTT (22.0-30.0) sec Sodium (137-145) mmol/L Chloride (98-107) mmol/L Carbon Dioxide (21.6-31.8) mmol/L Anion Gap (4.00-12.00) mmol/L BUN (9.0-27.0) mg/dL Glucose (74-99) mg/dL Plasma Lactic Acid Tanvir 2.6 H* (0.7-2.0) mmol/L Calcium (8.7-10.3) mg/dL Magnesium (1.6-2.3) mg/dL AST (14-36) U/L ALT (4-34) U/L Total Protein (6.3-8.2) g/dL Albumin (3.8-4.9) g/dL Amylase 179 H (30-110) U/L Lipase (23-300) U/L Urine Appearance Cloudy H (Clear) Urine Protein 2+ H (Negative) Urine Ketones 3+ H (Negative) Urine Blood Small H (Negative) Urine Bilirubin 1+ H (Negative) Urine RBC 8 H (0-5) /hpf Ur Squamous Epith Cells 14 H (0-4) /hpf Urine Bacteria Moderate H (None) /hpf Hyaline Casts 7 H (0-2) /lpf Urine Mucus Few H (None) /hpf 01/07/25 01/07/25 01/07/25 Range/Units 15:43 18:29 21:10 WBC (4.50-10.00) X 10*3/uL RBC (4.10-5.20) X 10*6/uL Hgb (12.0-15.0) g/dL MCV (80.0-97.0) fL MCH (27.0-32.0) pg Macrocytosis (manual) (None Seen) APTT (22.0-30.0) sec Sodium (137-145) mmol/L Chloride (98-107) mmol/L Carbon Dioxide (21.6-31.8) mmol/L Anion Gap (4.00-12.00) mmol/L BUN (9.0-27.0) mg/dL Glucose (74-99) mg/dL Plasma Lactic Acid Tanvir 2.9 H* 2.2 H* 2.4 H* (0.7-2.0) mmol/L Calcium (8.7-10.3) mg/dL Magnesium (1.6-2.3) mg/dL AST (14-36) U/L ALT (4-34) U/L Total Protein (6.3-8.2) g/dL Albumin (3.8-4.9) g/dL Amylase (30-110) U/L Lipase (23-300) U/L Urine Appearance (Clear) Urine Protein (Negative) Urine Ketones (Negative) Urine Blood (Negative) Urine Bilirubin (Negative) Urine RBC (0-5) /hpf Ur Squamous Epith Cells (0-4) /hpf Urine Bacteria (None) /hpf Hyaline Casts (0-2) /lpf Urine Mucus (None) /hpf 01/08/25 01/08/25 Range/Units 00:15 00:19 WBC 10.03 H (4.50-10.00) X 10*3/uL RBC 4.06 L (4.10-5.20) X 10*6/uL Hgb (12.0-15.0) g/dL MCV 105.4 H (80.0-97.0) fL MCH 36.2 H (27.0-32.0) pg Macrocytosis (manual) 2+ A (None Seen) APTT (22.0-30.0) sec Sodium (137-145) mmol/L Chloride 94 L (98-107) mmol/L Carbon Dioxide 21.1 L (21.6-31.8) mmol/L Anion Gap 21.90 H (4.00-12.00) mmol/L BUN 8.7 L (9.0-27.0) mg/dL Glucose 66 L (74-99) mg/dL Plasma Lactic Acid Tanvir (0.7-2.0) mmol/L Calcium 8.3 L (8.7-10.3) mg/dL Magnesium (1.6-2.3) mg/dL AST 93 H (14-36) U/L ALT 53 H (4-34) U/L Total Protein 5.2 L (6.3-8.2) g/dL Albumin 3.6 L (3.8-4.9) g/dL Amylase (30-110) U/L Lipase (23-300) U/L Urine Appearance (Clear) Urine Protein (Negative) Urine Ketones (Negative) Urine Blood (Negative) Urine Bilirubin (Negative) Urine RBC (0-5) /hpf Ur Squamous Epith Cells (0-4) /hpf Urine Bacteria (None) /hpf Hyaline Casts (0-2) /lpf Urine Mucus (None) /hpf Diabetes panel 01/07/25 01/08/25 Range/Units 12:03 00:19 Sodium 136 L 137 (137-145) mmol/L Potassium 3.7 3.7 (3.5-5.1) mmol/L Chloride 94 L 94 L (98-107) mmol/L Carbon Dioxide 26 21.1 L (22-30) mmol/L BUN 12 8.7 L (7-17) mg/dL Creatinine 0.80 0.7 (0.52-1.04) mg/dL Glucose 67 L 66 L (74-99) mg/dL Calcium 9.5 8.3 L (8.4-10.2) mg/dL AST 124 H 93 H (14-36) U/L ALT 67 H 53 H (4-34) U/L Alkaline Phosphatase 66 62 (38-126) U/L Total Protein 6.2 L 5.2 L (6.3-8.2) g/dL Albumin 4.0 3.6 L (3.5-5.0) g/dL Calcium panel 01/07/25 01/08/25 Range/Units 12:03 00:19 Calcium 9.5 8.3 L (8.4-10.2) mg/dL Albumin 4.0 3.6 L (3.5-5.0) g/dL Pituitary panel 01/07/25 01/08/25 Range/Units 12:03 00:19 Sodium 136 L 137 (137-145) mmol/L Potassium 3.7 3.7 (3.5-5.1) mmol/L Chloride 94 L 94 L (98-107) mmol/L Carbon Dioxide 26 21.1 L (22-30) mmol/L BUN 12 8.7 L (7-17) mg/dL Creatinine 0.80 0.7 (0.52-1.04) mg/dL Glucose 67 L 66 L (74-99) mg/dL Calcium 9.5 8.3 L (8.4-10.2) mg/dL Adrenal panel 01/07/25 01/08/25 Range/Units 12:03 00:19 Sodium 136 L 137 (137-145) mmol/L Potassium 3.7 3.7 (3.5-5.1) mmol/L Chloride 94 L 94 L (98-107) mmol/L Carbon Dioxide 26 21.1 L (22-30) mmol/L BUN 12 8.7 L (7-17) mg/dL Creatinine 0.80 0.7 (0.52-1.04) mg/dL Glucose 67 L 66 L (74-99) mg/dL Calcium 9.5 8.3 L (8.4-10.2) mg/dL Total Bilirubin 1.1 0.7 (0.2-1.3) mg/dL AST 124 H 93 H (14-36) U/L ALT 67 H 53 H (4-34) U/L Alkaline Phosphatase 66 62 (38-126) U/L Total Protein 6.2 L 5.2 L (6.3-8.2) g/dL Albumin 4.0 3.6 L (3.5-5.0) g/dL Assessment and Plan Assessment: ivf pain control follow up abdominal ultrasound Time with Patient: Less than 30
--- NOTE | 2025-01-08 14:51 | US ---
EXAMINATION TYPE: US gallbladder DATE OF EXAM: 01/08/2025 COMPARISON: CT(Yesterday) CLINICAL INDICATION: Female, 64 years old with history of Abdominal pain, pancreatitis, r/o gallstone s; TECHNIQUE: Grayscale and color Doppler imaging of the right upper quadrant. FINDINGS: EXAM MEASUREMENTS: Liver Length: 17.0 cm Gallbladder Wall: 0.2 cm CBD: 0.2 cm, color Doppler imaging was utilized to isolate the common bile duct for measurement. 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 Head and tail obscured by bowel gas shadowin g. Liver: Diffusely increased echogenicity. Borderline in size. No focal lesion. Anechoic areas seen: Lt lobe: 1.4x1.0x0.8cm Rt Lobe: 1.9x2.1x1.8cm Gallbladder: No stones seen Evidence for sonographic Lambert's sign: No CBD: wnl Right Kidney: No hydronephrosis or masses seen IMPRESSION: 1. Borderline megaly at 17.0 cm with severe hepatic steatosis. Appropriate clinical management is adv ised. 2. There are a couple lesions within the liver. These measure 1.4 cm on the left and 1.9 cm on the ri ght. The left-sided lesion seems to correspond to a benign cyst on yesterday's CT. The right-sided le amber is not clearly identified on yesterday's CT. A cyst or hemangioma are favored. Recommend 6 month follow-up ultrasound to reassess. 3. No gallstones or biliary ductal dilatation. [facility], Workstation: [id number], 01/08/2025 2:48 PM
[2025-01-08] MEDS: MAGNESIUM SULFATE-D5W PMX 1 GM in DEXTROSE/WATER 1 100ML.BAG IVPB SCH (15:00)
[2025-01-09 08:43] LABS: Basophils # (A) 0.02 X 10*3/uL (0.00-0.10); Basophils % (A) 0.2 %; Eosinophils # (A) 0.11 X 10*3/uL (0.04-0.35); Eosinophils % (A) 1.2 %; HGB 13.2 g/dL (12.0-15.0); Lymphocytes # (A) 0.99 X 10*3/uL (0.90-5.00); MCH 36.2 pg (27.0-32.0); MCHC 34.7 g/dL (32.0-37.0); MCV 104.1 FL (80.0-97.0); Mean Platelet Volume 11.4 FL (9.5-12.2); Monocytes # (A) 0.75 X 10*3/uL (0.20-1.00); Monocytes % (A) 8.4 %; NRBC Per 100 WBC 0 X 10*3/uL (0.00-0.01); Neutrophils # (A) 7.07 X 10*3/uL (1.80-7.70); Neutrophils % (A) 78.8 %; Platelet Count 112 X 10*3/uL (140-440); RBC 3.65 X 10*6/uL (4.10-5.20); RDW 12.5 % (11.5-14.5); WBC 8.98 X 10*3/uL (4.50-10.00)
[2025-01-09 08:44] LABS: Magnesium 2.1 mg/dL (1.5-2.4)
[2025-01-09 09:02] LABS: ALT 44 U/L (8-44); AST 94 U/L (13-35); Albumin 3.1 g/dL (3.8-4.9); Albumin/Globulin Ratio 2.38 Ratio (1.60-3.17); Alkaline Phosphatase 62 U/L (41-126); Calcium 7.5 mg/dL (8.7-10.3); Carbon Dioxide 24.7 mmol/L (21.6-31.8); Chloride 95 mmol/L (96-109); Globulin 1.3 g/dL (1.6-3.3); Glucose 70 mg/dL (70-110); Potassium 2.9 mmol/L (3.5-5.5); Sodium 137 mmol/L (135-145); Total Bilirubin 0.7 mg/dL (0.3-1.2); Total Protein 4.4 g/dL (6.2-8.2)
--- NOTE | 2025-01-09 10:45 | P.PN ---
Subjective Progress Note Date: 01/09/25 SURGICAL PROGRESS NOTE CHIEF COMPLAINT: Alcoholic pancreatitis HISTORY OF PRESENT ILLNESS: Patient reports improvement in her abdominal pain. Denies any nausea or vomiting. Reports that she is hungry. She has tolerated ice chips. She is mildly tachycardic. WBC 8.98 Hgb 13.2 platelets 112 potassium 2.9 total bilirubin 0.7 AST 94 minimally elevated ALT 44 normalized. Alk phos 62. Magnesium 2.1 gallbladder ultrasound reports no gallstones or biliary ductal dilatation. Borderline hepatomegaly with severe hepatic steatosis. Couple of lesions within the liver. Left-sided lesion corresponds to benign cyst. Right-sided lesion possible cyst or hemangioma. PHYSICAL EXAM: VITAL SIGNS: Reviewed. GENERAL: Well-developed in no acute distress. HEENT: No sclera icterus. Extraocular movements grossly intact. Moist buccal mucosa. Head is atraumatic, normocephalic. ABDOMEN: Soft. Nondistended. Very mild discomfort with epigastric palpation. NEUROLOGIC: Alert and oriented. Cranial nerves II through XII grossly intact. ASSESSMENT: 1. Alcoholic pancreatitis likely causing reactive enterocolitis. No gallstones noted on gallbladder ultrasound PLAN: -Advance diet to clear liquids -Continue IV fluids -Continue pain management Physician Chief Drafter note has been reviewed by physician. Signing provider agrees with the documented findings, assessment, and plan of care. Objective - Vital Signs Vital signs: Vital Signs Temp 98.3 F 01/09/25 07:15 Pulse 102 H 01/09/25 07:15 Resp 17 01/09/25 07:15 BP 122/85 01/09/25 07:15 Pulse Ox 98 01/09/25 07:15 FiO2 Intake & Output 01/08/25 01/09/25 01/09/25 18:59 06:59 18:59 Other: Voiding Method Toilet Diaper # Voids 3 3 1 - Labs CBC & Chem 7: 01/09/25 02:44 01/09/25 02:44 Labs: Abnormal Lab Results - Last 24 Hours (Table) 01/09/25 01/09/25 Range/Units 02:44 02:44 RBC 3.65 L (4.10-5.20) X 10*6/uL MCV 104.1 H (80.0-97.0) FL MCH 36.2 H (27.0-32.0) pg Plt Count 112 L (140-440) X 10*3/uL Potassium 2.9 L (3.5-5.5) mmol/L Chloride 95 L (96-109) mmol/L Anion Gap 17.30 H (4.00-12.00) mmol/L BUN 7.0 L (9.0-27.0) mg/dL Creatinine 0.5 L (0.6-1.5) mg/dL Calcium 7.5 L (8.7-10.3) mg/dL AST 94 H (13-35) U/L Total Protein 4.4 L (6.2-8.2) g/dL Albumin 3.1 L (3.8-4.9) g/dL Globulin 1.3 L (1.6-3.3) g/dL
[2025-01-09 14:13] VITALS: BMI 17.4
[2025-01-09] MEDS: KETOROLAC 15 MG/ML 1 ML VIAL IVP PRN (14:55)
[2025-01-09] MEDS ORDERED: Potassium Replacement Protocol 1 EACH MISC MISCELLANE PRN (15:29)
[2025-01-09] MEDS: POTASSIUM CHLORIDE ER 20 MEQ TAB.ER PO SCH (16:28)
[2025-01-09] MEDS: chlordiazePOXIDE 25 MG CAP PO SCH (16:28)
--- NOTE | 2025-01-09 17:18 | P.HPIM ---
History of Present Illness H&P Date: 01/08/25 This is a pleasant 64-year-old female who presented to the emergency department with generalized weakness that has been ongoing over the last few weeks and over the last week is progressively gotten worse. Patient also has been having issues with coughing and gagging and continued pain on her right side. Patient reports to drinking 3 drinks per day and has history of heavy alcohol use. Patient follows with Dr. Enriquez in the outpatient setting with past medical history of COPD, rheumatoid arthritis, degenerative disc disease, anxiety/bipolar depression. Patient admits to drinking alcohol and smoking cigarettes and denies any other drug use. Patient labs reviewed on admission reveal a white count of 8.9, hemoglobin 15.1, platelets 122, sodium 136 with a potassium of 3.7, BUN is 12, creatinine 0.8, lactic acid was 2.4, magnesium was 1.4, total bili is 1.1, AST elevated at 124, ALT 67, amylase 179, lipase 3652 urinalysis somewhat abnormal protein otherwise negative. Chest x-ray shows no acute cardiopulmonary process, CT abdomen pelvis shows suspect acute edematous interstitial pancreatitis causing reactive acute enterocolitis correlate clinically with pancreatic lab values. Patient was admitted with general surgery on consultation. REVIEW OF SYSTEMS: CONSTITUTIONAL: No fever, no malaise, no fatigue. HEENT: No recent visual problems or hearing problems. Denied any sore throat. CARDIOVASCULAR: No chest pain, orthopnea, PND, no palpitations, no syncope. PULMONARY: No shortness of breath, no cough, no hemoptysis. GASTROINTESTINAL: Reports multiple episodes of diarrhea, reports nausea, reports occasional vomiting, reports abdominal pain. NEUROLOGICAL: No headaches, no weakness, no numbness. HEMATOLOGICAL: Denies any bleeding or petechiae. GENITOURINARY: Denies any burning micturition, frequency, or urgency. MUSCULOSKELETAL/RHEUMATOLOGICAL: Denies any joint pain, swelling, or any muscle pain. ENDOCRINE: Denies any polyuria or polydipsia. The rest of the 14-point review of systems is negative. PHYSICAL EXAMINATION: GENERAL: The patient is alert and oriented x3, . Well developed, appears older than stated age, thin built, ill-appearing HEENT: Pupils are round and equally reacting to light. EOMI. No scleral icterus. No conjunctival pallor. Normocephalic, atraumatic. No pharyngeal erythema. No thyromegaly. CARDIOVASCULAR: S1 and S2 muffled PULMONARY: Diminished breath sounds bilaterally otherwise chest is clear to auscultation, no wheezing or crackles. ABDOMEN: Soft, thin, tender, nondistended, normoactive bowel sounds. No palpable organomegaly. MUSCULOSKELETAL: No joint swelling or deformity. EXTREMITIES: No cyanosis, clubbing, or pedal edema. NEUROLOGICAL: Gross neurological examination did not reveal any focal deficits. Diffusely weak SKIN: No rashes. Assessment: Abdominal pain with ongoing nausea and gagging for the last few weeks, concerns for acute pancreatitis with elevated amylase and lipase on admission Likely acute alcoholic pancreatitis as patient is a heavy drinker and last drink which she reports is heavy liquor 1 night prior to admission, evidence of enterocolitis on CT imaging Transaminitis likely secondary to continued ongoing alcohol abuse Concerns for acute alcohol withdrawal with early delirium tremens Hypomagnesemia Lactic acidosis, on admission likely secondary to acute pancreatitis History of COPD, not in exacerbation History of rheumatoid arthritis Degenerative disc disease history Anxiety/bipolar/depression Continued ongoing bleeding abuse History of polysubstance abuse including narcotics, crack/cocaine Mild protein calorie malnutrition with a BMI of 17.4 GI prophylaxis DVT prophylaxis Full code Plan: Patient was admitted with general surgery consult for acute pancreatitis with ab dominal pain and nausea, with concerns of enterocolitis as noted on CT imaging Gallbladder ultrasound ordered to evaluate for gallstones LFTs are elevated and will follow up and monitor expected to improve with alcohol cessation Continue CIWA protocol will also add Librium Continue gentle IV hydration and ice chips until less nauseated and may advance to clears per general surgery No plans of immediate surgical intervention at this time Will review and resume appropriate home medications Replace electrolytes per protocol The impression and plan of care has been dictated by Lakeisha Banks, Nurse Practitioner as directed. Dr. Valarie MD I have performed a history and examination and MDM of this patient, discussed the same with the dictator, and agree with the dictator's assessment and plan as written ,documented as a scribe. Based on total visit time, I have performed more than 50% of the visit. Past Medical History Past Medical History: COPD, Rheumatoid Arthritis (RA) Additional Past Medical History / Comment(s): DDD History of Any Multi-Drug Resistant Organisms: None Reported Past Surgical History: No Surgical Hx Reported Additional Past Surgical History / Comment(s): LESION OFF OVARY, D & C., COLONOSCOPY. Past Anesthesia/Blood Transfusion Reactions: No Reported Reaction Past Psychological History: Anxiety, Bipolar, Depression Smoking Status: Current every day smoker Past Alcohol Use History: Heavy Additional Past Alcohol Use History / Comment(s): DRINKS alcohol 2 times weekly, 3 drinks at a time. QUIT SMOKING 2 MONTHS AGO, STARTED AGE 17, SMOKED 1 PPD, QUIT FOR 10-15 YRS & RESTARTED. Past Drug Use History: None Reported Additional Drug Use History / Comment(s): PAST HX OF COCAINE & NARCOTIC ADDICTION. - Past Family History Mother Family Medical History: COPD Additional Family Medical History / Comment(s): Mother at age 62 from compl ications of COPD Father Family Medical History: Diabetes Mellitus, Hyperlipidemia, Hypertension Additional Family Medical History / Comment(s): hypertension and high cholesterol. Medications and Allergies Home Medications Medication Instructions Recorded Confirmed Type Montelukast [Singulair] 10 mg PO HS 02/25/24 01/07/25 History Omeprazole 40 mg PO DAILY 11/01/24 01/07/25 History Fluticasone Nasal [place] [Flonase 1 spray EA NOSTRIL BID 01/07/25 01/07/25 History Nasal [place]] Thiamine HCl [Vitamin B-1] 100 mg PO DAILY 01/07/25 01/07/25 History risperiDONE 2 mg PO HS 01/07/25 01/07/25 History Allergies Allergy/AdvReac Type Severity Reaction Status Date / Time No Known Allergies Allergy Verified 01/07/25 16:36 Physical Exam Vitals: Vital Signs Temp Pulse Resp BP Pulse Ox 01/09/25 14:00 98.1 F 102 H 17 122/86 96 01/09/25 07:15 98.3 F 102 H 17 122/85 98 01/09/25 01:06 98.3 F 115 H 18 133/88 96 01/08/25 19:19 98.6 F 109 H 17 126/88 98 Intake and Output 01/09/25 01/09/25 01/09/25 06:59 14:59 22:59 Other: # Voids 3 5 # Bowel Movements 2 Weight 43.091 kg Results CBC & Chem 7: 01/09/25 02:44 01/09/25 02:44 Labs: Abnormal Lab Results - Last 24 Hours (Table) 01/09/25 01/09/25 Range/Units 02:44 02:44 RBC 3.65 L (4.10-5.20) X 10*6/uL MCV 104.1 H (80.0-97.0) FL MCH 36.2 H (27.0-32.0) pg Plt Count 112 L (140-440) X 10*3/uL Potassium 2.9 L (3.5-5.5) mmol/L Chloride 95 L (96-109) mmol/L Anion Gap 17.30 H (4.00-12.00) mmol/L BUN 7.0 L (9.0-27.0) mg/dL Creatinine 0.5 L (0.6-1.5) mg/dL Calcium 7.5 L (8.7-10.3) mg/dL AST 94 H (13-35) U/L Total Protein 4.4 L (6.2-8.2) g/dL Albumin 3.1 L (3.8-4.9) g/dL Globulin 1.3 L (1.6-3.3) g/dL Thrombosis Risk Factor Assmnt - Choose All That Apply Any of the Below Risk Factors Present?: Yes Each Factor Represents 1 point: Abnormal pulmonary function (COPD) Other Risk Factors: Yes Each Risk Factor Represents 2 Points: Age 61-74 years Other congenital or acquired thrombophilia - If yes, enter type in comment: No Thrombosis Risk Factor Assessment Total Risk Factor Score: 3 Thrombosis Risk Factor Assessment Level: Moderate Risk Assessment and Plan Time with Patient: Greater than 30
--- NOTE | 2025-01-10 05:22 | P.PN ---
Subjective Progress Note Date: 01/09/25 This is a pleasant 64-year-old female who presented to the emergency department with generalized weakness that has been ongoing over the last few weeks and over the last week is progressively gotten worse. Patient also has been having issues with coughing and gagging and continued pain on her right side. Patient reports to drinking 3 drinks per day and has history of heavy alcohol use. Patient follows with Dr. Enriquez in the outpatient setting with past medical history of COPD, rheumatoid arthritis, degenerative disc disease, anxiety/bipolar depression. Patient admits to drinking alcohol and smoking cigarettes and denies any other drug use. Patient labs reviewed on admission reveal a white count of 8.9, hemoglobin 15.1, platelets 122, sodium 136 with a potassium of 3.7, BUN is 12, creatinine 0.8, lactic acid was 2.4, magnesium was 1.4, total bili is 1.1, AST elevated at 124, ALT 67, amylase 179, lipase 3652 urinalysis somewhat abnormal protein otherwise negative. Chest x-ray shows no acute cardiopulmonary process, CT abdomen pelvis shows suspect acute edematous interstitial pancreatitis causing reactive acute enterocolitis correlate clinically with pancreatic lab values. Patient was admitted with general surgery on consultation. 01/09/2025 Patient seen in follow-up today currently maintained on clear liquids along with IV hydration General Surgery following. Labs reviewed today reveal a sodium of 137 potassium 2.9, BUN 7.0 with creatinine 0.5, lactic acid has normalized, magnesium is 2.1 after replacement, AST trending down at 94 and ALT is 44. Will replace electrolytes per protocol and also adjust medications. Patient reports she is tolerating clear liquids although does continue with some mild abdominal discomfort. Review of systems: Constitutional: No reports of fatigue, fever, or chills Cardiovascular: No reports of chest pain or palpitations Respiratory: No reports of shortness of breath or cough GI: No reports of further nausea, vomiting, or diarrhea, some mild abdominal discomfort : No reports of dysuria or retention Neurovascular: reports of generalized weakness and some mild shakiness All medications have been reviewed The rest of the 14-point review of systems is negative. PHYSICAL EXAMINATION: GENERAL: The patient is alert and oriented x2-3, . Well developed, appears older than stated age, thin built, ill-appearing HEENT: Pupils are round and equally reacting to light. EOMI. No scleral icterus. No conjunctival pallor. Normocephalic, atraumatic. No pharyngeal erythema. No thyromegaly. CARDIOVASCULAR: S1 and S2 muffled, mildly tachycardic PULMONARY: Diminished breath sounds bilaterally otherwise chest is clear to auscultation, no wheezing or crackles. ABDOMEN: Soft, thin, tender, nondistended, normoactive bowel sounds. No palpable organomegaly. MUSCULOSKELETAL: No joint swelling or deformity. EXTREMITIES: No cyanosis, clubbing, or pedal edema. NEUROLOGICAL: Gross neurological examination did not reveal any focal deficits. Diffusely weak SKIN: No rashes. Assessment: Abdominal pain with ongoing nausea and gagging for the last few weeks, concerns for acute pancreatitis with elevated amylase and lipase on admission Likely acute alcoholic pancreatitis as patient is a heavy drinker and last drink which she reports is heavy liquor 1 night prior to admission, evidence of enterocolitis on CT imaging Multiple episodes of diarrhea, rule out C. difficile Transaminitis likely secondary to continued ongoing alcohol abuse Concerns for acute alcohol withdrawal with early delirium tremens Hypomagnesemia, being replaced Lactic acidosis, on admission likely secondary to acute pancreatitis History of COPD, not in exacerbation History of rheumatoid arthritis Degenerative disc disease history Anxiety/bipolar/depression Continued ongoing bleeding abuse History of polysubstance abuse including narcotics, crack/cocaine Mild protein calorie malnutrition with a BMI of 17.4 GI prophylaxis DVT prophylaxis Full code Plan: Patient was admitted with general surgery on consult for acute pancreatitis with abdominal pain and nausea, with concerns of enterocolitis as noted on CT imaging Gallbladder ultrasound ordered to evaluate for gallstones LFTs are elevated and will follow up and monitor expected to improve with alcoh ol cessation Continue CIWA protocol will also add Librium Continue gentle IV hydration and ice chips until less nauseated and may advance to clears per general surgery No plans of immediate surgical intervention at this time Will review and resume appropriate home medications Replace electrolytes per protocol The impression and plan of care has been dictated by Lakeisha Banks Nurse Practitioner as directed. Dr. Valarie MD I have performed a history and examination and MDM of this patient, discussed the same with the dictator, and agree with the dictator's assessment and plan as written ,documented as a scribe. Based on total visit time, I have performed more than 50% of the visit. Objective - Vital Signs Vital signs: Vital Signs Temp 98.1 F 01/09/25 14:00 Pulse 102 H 01/09/25 14:00 Resp 17 01/09/25 14:00 BP 122/86 01/09/25 14:00 Pulse Ox 96 01/09/25 14:00 FiO2 Intake & Output 01/08/25 01/09/25 01/09/25 18:59 06:59 18:59 Weight 43.091 kg Other: Voiding Method Toilet Diaper # Voids 3 3 5 # Bowel Movements 2 - Labs CBC & Chem 7: 01/09/25 02:44 01/10/25 01:55 Labs: Abnormal Lab Results - Last 24 Hours (Table) 01/09/25 01/09/25 Range/Units 02:44 02:44 RBC 3.65 L (4.10-5.20) X 10*6/uL MCV 104.1 H (80.0-97.0) FL MCH 36.2 H (27.0-32.0) pg Plt Count 112 L (140-440) X 10*3/uL Potassium 2.9 L (3.5-5.5) mmol/L Chloride 95 L (96-109) mmol/L Anion Gap 17.30 H (4.00-12.00) mmol/L BUN 7.0 L (9.0-27.0) mg/dL Creatinine 0.5 L (0.6-1.5) mg/dL Calcium 7.5 L (8.7-10.3) mg/dL AST 94 H (13-35) U/L Total Protein 4.4 L (6.2-8.2) g/dL Albumin 3.1 L (3.8-4.9) g/dL Globulin 1.3 L (1.6-3.3) g/dL
[2025-01-10] MEDS: PANTOPRAZOLE 40 MG/10 ML VIAL IVP SCH (08:31)
[2025-01-10] MEDS: POTASSIUM CHLORIDE ER 20 MEQ TAB.ER PO SCH (08:31)
[2025-01-10] MEDS: LOPERAMIDE 2 MG CAP PO PRN (08:35)
[2025-01-10 10:23] LABS: Basophils # (A) 0.02 X 10*3/uL (0.00-0.10); Basophils % (A) 0.2 %; Eosinophils # (A) 0.12 X 10*3/uL (0.04-0.35); Eosinophils % (A) 1.4 %; HCT 35.5 % (37.2-46.3); HGB 12.2 g/dL (12.0-15.0); Lymphocytes # (A) 0.93 X 10*3/uL (0.90-5.00); Lymphocytes % (A) 10.5 %; MCHC 34.4 g/dL (32.0-37.0); MCV 104.7 FL (80.0-97.0); Mean Platelet Volume 11.2 FL (9.5-12.2); Monocytes # (A) 0.82 X 10*3/uL (0.20-1.00); Monocytes % (A) 9.3 %; NRBC Per 100 WBC 0 X 10*3/uL (0.00-0.01); Neutrophils # (A) 6.92 X 10*3/uL (1.80-7.70); Neutrophils % (A) 78.3 %; Platelet Count 109 X 10*3/uL (140-440); RBC 3.39 X 10*6/uL (4.10-5.20); RDW 12.4 % (11.5-14.5); WBC 8.84 X 10*3/uL (4.50-10.00)
[2025-01-10 10:45] LABS: ALT 44 U/L (8-44); AST 93 U/L (13-35); Albumin 3.2 g/dL (3.8-4.9); Albumin/Globulin Ratio 2.46 Ratio (1.60-3.17); Alkaline Phosphatase 71 U/L (41-126); Amylase 270 U/L (23-121); BUN/Creat Ratio <7.00 Ratio (12.00-20.00); Blood Urea Nitrogen <3.5 mg/dL (9.0-27.0); Calcium 8.1 mg/dL (8.7-10.3); Carbon Dioxide 26.8 mmol/L (21.6-31.8); Chloride 102 mmol/L (96-109); Globulin 1.3 g/dL (1.6-3.3); Glucose 83 mg/dL (70-110); Magnesium 1.4 mg/dL (1.5-2.4); Potassium 3.8 mmol/L (3.5-5.5); Sodium 139 mmol/L (135-145); Total Bilirubin 0.6 mg/dL (0.3-1.2); Total Protein 4.5 g/dL (6.2-8.2)
[2025-01-10 10:51] LABS: Lipase 953 U/L (14-63)
--- NOTE | 2025-01-10 12:58 | P.PN ---
Subjective Progress Note Date: 01/10/25 SURGICAL PROGRESS NOTE CHIEF COMPLAINT: Alcoholic pancreatitis HISTORY OF PRESENT ILLNESS: Patient reports improvement in her abdominal pain. She has had minimal pain medication use. Denies any nausea or vomiting. Tolerating the clear liquids. She is having diarrhea. Stool for C. difficile negative. Nursing staff is giving Imodium. Afebrile. Heart rate 106. WBC 8.84 magnesium 1.4 total bili 0.6 AST elevated but the same at 93 ALT 44 alk phos 71 lipase 953 PHYSICAL EXAM: VITAL SIGNS: Reviewed. GENERAL: Well-developed in no acute distress. ABDOMEN: Soft. Nondistended. Minimal epigastric discomfort with palpation NEUROLOGIC: Alert and oriented. Cranial nerves II through XII grossly intact. ASSESSMENT: 1. Alcoholic pancreatitis likely causing reactive enterocolitis. No gallstones noted on gallbladder ultrasound PLAN: -Advance diet to low-fat -Replace magnesium Physician Vice President Lending note has been reviewed by physician. Signing provider agrees with the documented findings, assessment, and plan of care. Attestation Patient seen and examined at bedside. Present with chief complaint of abdominal pain and found to have alcohol pancreatitis. This appears to be improving. P yves to advance diet. Increase activity. Continue pancreatitis treatment. No evidence of gallstones on imaging. No plan for surgical intervention at this time. Continue medical management pancreatitis. Nicole Bui, Objective - Vital Signs Vital signs: Vital Signs Temp 98.2 F 01/10/25 08:00 Pulse 106 H 01/10/25 08:00 Resp 16 01/10/25 08:00 BP 122/87 01/10/25 08:00 Pulse Ox 97 01/10/25 08:00 FiO2 Intake & Output 01/09/25 01/10/25 01/10/25 18:59 06:59 18:59 Intake Total 100 Balance 100 Weight 43.091 kg Intake: Oral 100 Other: Voiding Method Toilet Diaper # Voids 3 3 2 # Bowel Movements 1 3 2 - Labs CBC & Chem 7: 01/10/25 06:19 01/10/25 06:19 Labs: Abnormal Lab Results - Last 24 Hours (Table) 01/10/25 01/10/25 Range/Units 06:19 06:19 RBC 3.39 L (4.10-5.20) X 10*6/uL Hct 35.5 L (37.2-46.3) % MCV 104.7 H (80.0-97.0) FL MCH 36.0 H (27.0-32.0) pg Plt Count 109 L (140-440) X 10*3/uL BUN <3.5 L (9.0-27.0) mg/dL Creatinine 0.5 L (0.6-1.5) mg/dL BUN/Creatinine Ratio <7.00 L (12.00-20.00) Ratio Calcium 8.1 L (8.7-10.3) mg/dL Magnesium 1.4 L (1.5-2.4) mg/dL AST 93 H (13-35) U/L Total Protein 4.5 L (6.2-8.2) g/dL Albumin 3.2 L (3.8-4.9) g/dL Globulin 1.3 L (1.6-3.3) g/dL Amylase 270 H (23-121) U/L Lipase 953 H (14-63) U/L
[2025-01-10] MEDS: MAGNESIUM SULFATE-D5W PMX 1 GM in DEXTROSE/WATER 1 100ML.BAG IVPB SCH (13:59)
--- NOTE | 2025-01-11 05:57 | P.PN ---
Subjective Progress Note Date: 01/10/25 This is a pleasant 64-year-old female who presented to the emergency department with generalized weakness that has been ongoing over the last few weeks and over the last week is progressively gotten worse. Patient also has been having issues with coughing and gagging and continued pain on her right side. Patient reports to drinking 3 drinks per day and has history of heavy alcohol use. Patient follows with Dr. Enriquez in the outpatient setting with past medical history of COPD, rheumatoid arthritis, degenerative disc disease, anxiety/bipolar depression. Patient admits to drinking alcohol and smoking cigarettes and denies any other drug use. Patient labs reviewed on admission reveal a white count of 8.9, hemoglobin 15.1, platelets 122, sodium 136 with a potassium of 3.7, BUN is 12, creatinine 0.8, lactic acid was 2.4, magnesium was 1.4, total bili is 1.1, AST elevated at 124, ALT 67, amylase 179, lipase 3652 urinalysis somewhat abnormal protein otherwise negative. Chest x-ray shows no acute cardiopulmonary process, CT abdomen pelvis shows suspect acute edematous interstitial pancreatitis causing reactive acute enterocolitis correlate clinically with pancreatic lab values. Patient was admitted with general surgery on consultation. 01/09/2025 Patient seen in follow-up today currently maintained on clear liquids along with IV hydration General Surgery following. Labs reviewed today reveal a sodium of 137 potassium 2.9, BUN 7.0 with creatinine 0.5, lactic acid has normalized, magnesium is 2.1 after replacement, AST trending down at 94 and ALT is 44. Will replace electrolytes per protocol and also adjust medications. Patient reports she is tolerating clear liquids although does continue with some mild abdominal discomfort. 01/10/2025 Patient seen in follow-up this morning sitting up in the chair much more awake and alert today. Patient reports she is feeling improved and no abdominal pain and diet is being advanced per general surgery. Amylase/lipase remain elevated although are trending down and will continue with IV hydration and pain management. Patient also to continue on CIWA protocol and Librium taper. Patient is afebrile with no reports of chest pain or shortness of breath on exam reporting she would like to go home. Will have PT/OT therapy evaluate and appreciate input and recommendations. If patient continues to improve and tolerating oral intake, may be considered discharge. Review of systems: Constitutional: No reports of fatigue, fever, or chills Cardiovascular: No reports of chest pain or palpitations Respiratory: No reports of shortness of breath or cough GI: No reports of further nausea, no vomiting, or diarrhea, reports no further abdominal pain : No reports of dysuria or retention Neurovascular: reports of generalized weakness and some mild shakiness All medications have been reviewed The rest of the 14-point review of systems is negative. PHYSICAL EXAMINATION: GENERAL: The patient is alert and oriented x2-3, . Well developed, appears older than stated age, thin built, ill-appearing HEENT: Pupils are round and equally reacting to light. EOMI. No scleral icterus. No conjunctival pallor. Normocephalic, atraumatic. No pharyngeal erythema. No thyromegaly. CARDIOVASCULAR: S1 and S2 muffled, mildly tachycardic PULMONARY: Diminished breath sounds bilaterally otherwise chest is clear to auscultation, no wheezing or crackles. ABDOMEN: Soft, thin, tender, nondistended, normoactive bowel sounds. No palpable organomegaly. MUSCULOSKELETAL: No joint swelling or deformity. EXTREMITIES: No cyanosis, clubbing, or pedal edema. NEUROLOGICAL: Gross neurological examination did not reveal any focal deficits. Diffusely weak SKIN: No rashes. Assessment: Abdominal pain with ongoing nausea and gagging for the last few weeks, concerns for acute pancreatitis with elevated amylase and lipase on admission Likely acute alcoholic pancreatitis as patient is a heavy drinker and last drink which she reports is heavy liquor 1 night prior to admission, evidence of enterocolitis on CT imaging Multiple episodes of diarrhea, ruled out C. difficile Transaminitis likely secondary to continued ongoing alcohol abuse Concerns for acute alcohol withdrawal with early delirium tremens, continued on CIWA protocol Hypomagnesemia, being replaced Lactic acidosis, on admission likely secondary to acute pancreatitis History of COPD, not in exacerbation History of rheumatoid arthritis Degenerative disc disease history Anxiety/bipolar/depression Continued ongoing bleeding abuse History of polysubstance abuse including narcotics, crack/cocaine Mild protein calorie malnutrition with a BMI of 17.4 GI prophylaxis DVT prophylaxis Full code Plan: Patient was admitted with general surgery on consult for acute pancreatitis with abdominal pain and nausea, with concerns of enterocolitis as noted on CT imaging Gallbladder ultrasound ordered to evaluate for gallstones with no plans for surgical intervention at this time LFTs are elevated and will follow up and monitor expected to improve with alcohol cessation Continue CIWA protocol will continue Librium and taper Continue gentle IV hydration and diet is being advanced per surgery patient denying any further abdominal pain Will review and resume appropriate home medications Replace electrolytes per protocol is 1.5 and will replace Will await PT/OT therapy evaluation as patient reports she would like to go home and is significantly weak Possible discharge planning in the next 24 to 48 hours The impression and plan of care has been dictated by Lakeisha Banks, Nurse Practitioner as directed. Dr. Denny MD I have performed a history and examination and MDM of this patient, discussed the same with the dictator, and agree with the dictator's assessment and plan as written ,documented as a scribe. Based on total visit time, I have performed more than 50% of the visit. Objective - Vital Signs Vital signs: Vital Signs Temp 98.2 F 01/10/25 08:00 Pulse 106 H 01/10/25 08:00 Resp 16 01/10/25 08:00 BP 122/87 01/10/25 08:00 Pulse Ox 97 01/10/25 08:00 FiO2 Intake & Output 01/09/25 01/10/25 01/10/25 18:59 06:59 18:59 Intake Total 100 Balance 100 Weight 43.091 kg Intake: Oral 100 Other: Voiding Method Toilet Diaper # Voids 3 3 2 # Bowel Movements 1 3 2 - Labs CBC & Chem 7: 01/10/25 06:19 01/10/25 06:19
--- NOTE | 2025-01-11 06:07 | XR ---
EXAMINATION TYPE: XR chest 1V portable DATE OF EXAM: 01/11/2025 CLINICAL INDICATION: Female, 64 years old with history of chest pain, progress study. TECHNIQUE: Single AP portable upright view of the chest is obtained. COMPARISON: Chest x-ray from 4 days earlier FINDINGS: There is dextroconvex scoliosis centered in the midthoracic spine. There is background chronic emphysematous change without suspicious focal airspace opacity, pleural e ffusion, or pneumothorax seen bilaterally. Cardiac silhouette size is stable and within normal limits . IMPRESSION: Chronic emphysematous change without acute pulmonary process. [facility], , 01/11/2025 6:05 AM
[2025-01-11 09:01] LABS: BUN/Creat Ratio <7.00 Ratio (12.00-20.00); Blood Urea Nitrogen <3.5 mg/dL (9.0-27.0); Calcium 8.2 mg/dL (8.7-10.3); Carbon Dioxide 23.9 mmol/L (21.6-31.8); Chloride 103 mmol/L (96-109); Glucose 90 mg/dL (70-110); Magnesium 1.7 mg/dL (1.5-2.4); Potassium 3.8 mmol/L (3.5-5.5); Sodium 138 mmol/L (135-145)
[2025-01-11 10:42] LABS: Amylase 207 U/L (23-121)
[2025-01-11 10:54] LABS: Lipase 574 U/L (14-63)
--- NOTE | 2025-01-11 12:51 | P.PN ---
Subjective Progress Note Date: 01/11/25 SURGICAL PROGRESS NOTE CHIEF COMPLAINT: Alcoholic pancreatitis HISTORY OF PRESENT ILLNESS: Patient reports she is feeling better. She tolerated about 50% of her breakfast this morning. No nausea or vomiting. Patient reported an episode of chest pain to nursing staff this morning and they notified medicine service. Medicine service ordered EKG and troponin. Afebrile. Mildly tachycardia resolved. Magnesium 1.7 lipase 953 down to 574 PHYSICAL EXAM: VITAL SIGNS: Reviewed. GENERAL: Well-developed in no acute distress. ABDOMEN: Soft. Nondistended. Minimal epigastric discomfort with palpation NEUROLOGIC: Alert and oriented. Cranial nerves II through XII grossly intact. ASSESSMENT: 1. Alcoholic pancreatitis likely causing reactive enterocolitis. No gallstones noted on gallbladder ultrasound PLAN: -Continue low-fat diet -No surgical intervention planned Physician Placement Specialist note has been reviewed by physician. Signing provider agrees with the documented findings, assessment, and plan of care. Attestation Patient seen and examined at bedside. States Abdominal pain is improving. No vomiting or nausea at this time. Continue diet. Surgically stable for discharge. No plan for surgical intervention at this time. Nicole Bui DO Objective - Vital Signs Vital signs: Vital Signs Temp 98.5 F 01/11/25 08:00 Pulse 99 01/11/25 08:00 Resp 16 01/11/25 08:00 BP 129/86 01/11/25 08:00 Pulse Ox 96 01/11/25 09:47 FiO2 Intake & Output 01/10/25 01/11/25 01/11/25 18:59 06:59 18:59 Intake Total 100 200 Balance 100 200 Intake: Oral 100 200 Other: Voiding Method Toilet Diaper # Voids 6 2 3 # Bowel Movements 3 - Labs CBC & Chem 7: 01/10/25 06:19 01/11/25 05:11 Labs: Abnormal Lab Results - Last 24 Hours (Table) 01/11/25 01/11/25 Range/Units 05:11 06:02 BUN <3.5 L (9.0-27.0) mg/dL Creatinine 0.5 L (0.6-1.5) mg/dL BUN/Creatinine Ratio <7.00 L (12.00-20.00) Ratio Calcium 8.2 L (8.7-10.3) mg/dL Amylase 207 H (23-121) U/L Lipase 574 H (14-63) U/L
--- NOTE | 2025-01-12 09:12 | P.PN ---
Subjective Progress Note Date: 01/11/25 This is a pleasant 64-year-old female who presented to the emergency department with generalized weakness that has been ongoing over the last few weeks and over the last week is progressively gotten worse. Patient also has been having issues with coughing and gagging and continued pain on her right side. Patient reports to drinking 3 drinks per day and has history of heavy alcohol use. Patient follows with Dr. Enriquez in the outpatient setting with past medical history of COPD, rheumatoid arthritis, degenerative disc disease, anxiety/bipolar depression. Patient admits to drinking alcohol and smoking cigarettes and denies any other drug use. Patient labs reviewed on admission reveal a white count of 8.9, hemoglobin 15.1, platelets 122, sodium 136 with a potassium of 3.7, BUN is 12, creatinine 0.8, lactic acid was 2.4, magnesium was 1.4, total bili is 1.1, AST elevated at 124, ALT 67, amylase 179, lipase 3652 urinalysis somewhat abnormal protein otherwise negative. Chest x-ray shows no acute cardiopulmonary process, CT abdomen pelvis shows suspect acute edematous interstitial pancreatitis causing reactive acute enterocolitis correlate clinically with pancreatic lab values. Patient was admitted with general surgery on consultation. 01/09/2025 Patient seen in follow-up today currently maintained on clear liquids along with IV hydration General Surgery following. Labs reviewed today reveal a sodium of 137 potassium 2.9, BUN 7.0 with creatinine 0.5, lactic acid has normalized, magnesium is 2.1 after replacement, AST trending down at 94 and ALT is 44. Will replace electrolytes per protocol and also adjust medications. Patient reports she is tolerating clear liquids although does continue with some mild abdominal discomfort. 01/10/2025 Patient seen in follow-up this morning sitting up in the chair much more awake and alert today. Patient reports she is feeling improved and no abdominal pain and diet is being advanced per general surgery. Amylase/lipase remain elevated although are trending down and will continue with IV hydration and pain management. Patient also to continue on CIWA protocol and Librium taper. Patient is afebrile with no reports of chest pain or shortness of breath on exam reporting she would like to go home. Will have PT/OT therapy evaluate and appreciate input and recommendations. If patient continues to improve and tolerating oral intake, may be considered discharge. 01/11/2025 Patient is seen in follow-up today LFTs are improving along with amylase and lipase and patient is tolerating more diet reports no abdominal pain. Patient e valuated by general surgery clearing the patient for discharge. Will await updated PT/OT therapy notes as patient is unsteady and reports ongoing home. Patient is afebrile and did report some chest pain this morning and obtained a chest x-ray along with troponin and EKG which were within normal limits. Patient will be monitored overnight and probable discharge in 24 hours. Review of systems: Constitutional: No reports of fatigue, fever, or chills Cardiovascular: No reports of chest pain or palpitations Respiratory: No reports of shortness of breath or cough GI: No reports of further nausea, no vomiting, or diarrhea, reports no further abdominal pain : No reports of dysuria or retention Neurovascular: reports of generalized weakness and some mild shakiness All medications have been reviewed The rest of the 14-point review of systems is negative. PHYSICAL EXAMINATION: GENERAL: The patient is alert and oriented x2-3, . Well developed, appears older than stated age, thin built, ill-appearing HEENT: Pupils are round and equally reacting to light. EOMI. No scleral icterus. No conjunctival pallor. Normocephalic, atraumatic. No pharyngeal erythema. No thyromegaly. CARDIOVASCULAR: S1 and S2 muffled, mildly tachycardic PULMONARY: Diminished breath sounds bilaterally otherwise chest is clear to auscultation, no wheezing or crackles. ABDOMEN: Soft, thin, tender, nondistended, normoactive bowel sounds. No palpable organomegaly. MUSCULOSKELETAL: No joint swelling or deformity. EXTREMITIES: No cyanosis, clubbing, or pedal edema. NEUROLOGICAL: Gross neurological examination did not reveal any focal deficits. Diffusely weak SKIN: No rashes. Assessment: Abdominal pain with ongoing nausea and gagging for the last few weeks, concerns for acute pancreatitis with elevated amylase and lipase on admission Likely acute alcoholic pancreatitis as patient is a heavy drinker and last drink which she reports is heavy liquor 1 night prior to admission, evidence of enterocolitis on CT imaging Multiple episodes of diarrhea, ruled out C. difficile Transaminitis likely secondary to continued ongoing alcohol abuse Concerns for acute alcohol withdrawal with early delirium tremens, continued on CIWA protocol Hypomagnesemia, being replaced Lactic acidosis, on admission likely secondary to acute pancreatitis History of COPD, not in exacerbation History of rheumatoid arthritis Degenerative disc disease history Anxiety/bipolar/depression Continued ongoing bleeding abuse History of polysubstance abuse including narcotics, crack/cocaine Mild protein calorie malnutrition with a BMI of 17.4 GI prophylaxis DVT prophylaxis Full code Plan: Patient was admitted with general surgery on consult for acute pancreatitis with abdominal pain and nausea, with concerns of enterocolitis as noted on CT imaging Gallbladder ultrasound ordered to evaluate for gallstones with no plans for surgical intervention at this time LFTs are elevated although trending down and will follow up and monitor expected to improve with alcohol cessation Continue CIWA protocol will continue Librium and taper. Patient is not requiring Ativan and will taper the Librium Continue gentle IV hydration and diet is being advanced per surgery patient denying any further abdominal pain Will review and resume appropriate home medications Will await PT/OT therapy evaluation as patient reports she would like to go home and is significantly weak. Patient is weak and was evaluated and will need a walker on discharge in order to manage her ADLs independently. Possible discharge planning in the next 24 hours The impression and plan of care has been dictated by Lakeisha Banks, Nurse Practitioner as directed. Dr. Denny MD I have performed a history and examination and MDM of this patient, discussed the same with the dictator, and agree with the dictator's assessment and plan as written ,documented as a scribe. Based on total visit time, I have performed more than 50% of the visit. Objective - Vital Signs Vital signs: Vital Signs Temp 98.5 F 01/12/25 07:17 Pulse 101 H 01/12/25 07:17 Resp 16 01/12/25 07:17 BP 114/78 01/12/25 07:17 Pulse Ox 96 01/12/25 07:17 FiO2 Intake & Output 01/11/25 01/12/25 01/12/25 18:59 06:59 18:59 Intake Total 400 Balance 400 Weight 43.091 kg Intake: Oral 400 Other: # Voids 5 7 - Labs CBC & Chem 7: 01/10/25 06:19 01/11/25 05:11 Labs: Abnormal Lab Results - Last 24 Hours (Table) 01/11/25 Range/Units 06:02 Amylase 207 H (23-121) U/L Lipase 574 H (14-63) U/L
--- NOTE | 2025-01-12 12:34 | P.PN ---
Subjective Progress Note Date: 01/12/25 SURGICAL PROGRESS NOTE CHIEF COMPLAINT: Alcoholic pancreatitis HISTORY OF PRESENT ILLNESS: Patient denies any abdominal pain. She reports tolerating diet. Denies any nausea or vomiting. Afebrile. HR 101 PHYSICAL EXAM: VITAL SIGNS: Reviewed. GENERAL: Well-developed in no acute distress. ABDOMEN: Soft. Nondistended. Minimal epigastric pressure with palpation NEUROLOGIC: Alert and oriented. Cranial nerves II through XII grossly intact. ASSESSMENT: 1. Alcoholic pancreatitis likely causing reactive enterocolitis. No gallstones noted on gallbladder ultrasound PLAN: -Continue low-fat diet -No surgical intervention planned -Patient can be discharged from surgical standpoint when medically cleared Physician Assistant Professor In Family Studies note has been reviewed by physician. Signing provider agrees with the documented findings, assessment, and plan of care. Attestation Patient seen and examined at bedside. Denies abdominal pain. Pancreatitis appears to be resolved. Continue low-fat diet. Surgically stable for discharge. Recommended alcohol cessation. Nicole Bui, DO Objective - Vital Signs Vital signs: Vital Signs Temp 98.5 F 01/12/25 07:17 Pulse 101 H 01/12/25 07:17 Resp 16 01/12/25 07:17 BP 114/78 01/12/25 07:17 Pulse Ox 96 01/12/25 07:17 FiO2 Intake & Output 01/11/25 01/12/25 01/12/25 18:59 06:59 18:59 Intake Total 400 Balance 400 Weight 43.091 kg Intake: Oral 400 Other: # Voids 5 7 - Labs CBC & Chem 7: 01/10/25 06:19 01/11/25 05:11
[2025-01-12] MEDS ORDERED: ACETAMINOPHEN TAB 325 MG TAB PO PRN (13:03)
--- NOTE | 2025-01-12 13:59 | P.PN ---
Subjective Progress Note Date: 01/12/25 This is a pleasant 64-year-old female who presented to the emergency department with generalized weakness that has been ongoing over the last few weeks and over the last week is progressively gotten worse. Patient also has been having issues with coughing and gagging and continued pain on her right side. Patient reports to drinking 3 drinks per day and has history of heavy alcohol use. Patient follows with Dr. Enriquez in the outpatient setting with past medical history of COPD, rheumatoid arthritis, degenerative disc disease, anxiety/bipolar depression. Patient admits to drinking alcohol and smoking cigarettes and denies any other drug use. Patient labs reviewed on admission reveal a white count of 8.9, hemoglobin 15.1, platelets 122, sodium 136 with a potassium of 3.7, BUN is 12, creatinine 0.8, lactic acid was 2.4, magnesium was 1.4, total bili is 1.1, AST elevated at 124, ALT 67, amylase 179, lipase 3652 urinalysis somewhat abnormal protein otherwise negative. Chest x-ray shows no acute cardiopulmonary process, CT abdomen pelvis shows suspect acute edematous interstitial pancreatitis causing reactive acute enterocolitis correlate clinically with pancreatic lab values. Patient was admitted with general surgery on consultation. 01/09/2025 Patient seen in follow-up today currently maintained on clear liquids along with IV hydration General Surgery following. Labs reviewed today reveal a sodium of 137 potassium 2.9, BUN 7.0 with creatinine 0.5, lactic acid has normalized, magnesium is 2.1 after replacement, AST trending down at 94 and ALT is 44. Will replace electrolytes per protocol and also adjust medications. Patient reports she is tolerating clear liquids although does continue with some mild abdominal discomfort. 01/10/2025 Patient seen in follow-up this morning sitting up in the chair much more awake and alert today. Patient reports she is feeling improved and no abdominal pain and diet is being advanced per general surgery. Amylase/lipase remain elevated although are trending down and will continue with IV hydration and pain management. Patient also to continue on CIWA protocol and Librium taper. Patient is afebrile with no reports of chest pain or shortness of breath on exam reporting she would like to go home. Will have PT/OT therapy evaluate and appreciate input and recommendations. If patient continues to improve and tolerating oral intake, may be considered discharge. 01/11/2025 Patient is seen in follow-up today LFTs are improving along with amylase and lipase and patient is tolerating more diet reports no abdominal pain. Patient e valuated by general surgery clearing the patient for discharge. Will await updated PT/OT therapy notes as patient is unsteady and reports ongoing home. Patient is afebrile and did report some chest pain this morning and obtained a chest x-ray along with troponin and EKG which were within normal limits. Patient will be monitored overnight and probable discharge in 24 hours. 01/12/2025 Patient is seen in follow-up this morning appears to be mildly tremulous and extremely weak and per nursing staff had attempted to get up when family was present and reports to falling. Patient is significantly weak and will have PT/OT therapy reevaluate and discuss further with case management as we feel she is unsafe for discharge home and would benefit from ECF. Patient does have significant history of EtOH abuse and is here for alcoholic pancreatitis which has improved and patient is tolerating diet. Patient was maintained on CIWA although not requiring Ativan and is on a Librium taper which will taper to twice daily. Patient will require insurance authorization which will be submitted and case management currently working on an accepting ECF. Multiple ECF's are out of network and not accepting her insurance. [facility] has no bed available until mid next week. [facility] cannot accept her insurance. Patient is afebrile with no reports of chest pain or shortness of breath. Patient is michelle ating diet and will continue current regimen. Review of systems: Constitutional: No reports of fatigue, fever, or chills Cardiovascular: No reports of chest pain or palpitations Respiratory: No reports of shortness of breath or cough GI: No reports of further nausea, no vomiting, or diarrhea, reports no further abdominal pain : No reports of dysuria or retention Neurovascular: reports of generalized weakness and some mild shakiness All medications have been reviewed The rest of the 14-point review of systems is negative. PHYSICAL EXAMINATION: GENERAL: The patient is alert and oriented x2-3, baseline. Well developed, appears older than stated age, thin built, ill-appearing HEENT: Pupils are round and equally reacting to light. EOMI. No scleral icterus. No conjunctival pallor. Normocephalic, atraumatic. No pharyngeal erythema. No thyromegaly. CARDIOVASCULAR: S1 and S2 muffled, mildly tachycardic PULMONARY: Diminished breath sounds bilaterally otherwise chest is clear to auscultation, no wheezing or crackles. ABDOMEN: Soft, thin, tender, nondistended, normoactive bowel sounds. No palpable organomegaly. MUSCULOSKELETAL: No joint swelling or deformity. EXTREMITIES: No cyanosis, clubbing, or pedal edema. NEUROLOGICAL: Gross neurological examination did not reveal any focal deficits. Diffusely weak SKIN: No rashes. Assessment: Abdominal pain with ongoing nausea and gagging for the last few weeks, concerns for acute pancreatitis with elevated amylase and lipase on admission Likely acute alcoholic pancreatitis as patient is a heavy drinker and last drink which she reports is heavy liquor 1 night prior to admission, evidence of enterocolitis on CT imaging Multiple episodes of diarrhea, ruled out C. difficile Transaminitis likely secondary to continued ongoing alcohol abuse Concerns for acute alcohol withdrawal with early delirium tremens, continued on CIWA protocol Generalized weakness with gait dysfunction and fall, significantly weak and will require ECF on discharge Hypomagnesemia, improved after replacement Lactic acidosis, on admission likely secondary to acute pancreatitis History of COPD, not in exacerbation History of rheumatoid arthritis Degenerative disc disease history Anxiety/bipolar/depression Continued ongoing bleeding abuse History of polysubstance abuse including narcotics, crack/cocaine Mild protein calorie malnutrition with a BMI of 17.4 GI prophylaxis DVT prophylaxis Full code Plan: Patient was admitted with general surgery on consult for acute pancreatitis with abdominal pain and nausea, with concerns of enterocolitis as noted on CT imaging Gallbladder ultrasound ordered to evaluate for gallstones with no plans for surgical intervention at this time LFTs are elevated although trending down and will follow up and monitor expected to improve with alcohol cessation Continue CIWA protocol will continue Librium and taper. Patient is not requiring Ativan and will taper the Librium even further to twice daily Continue gentle IV hydration and diet is being tolerated Will review and resume appropriate home medications Will await PT/OT therapy re-evaluation as patient reports she would like to go home although is significantly weak. Patient was attempting to get up and ambulate with family in the room and per nursing staff fell and remained significantly weak. Patient is now agreeable to ECF and case management foll owing working on an accepting ECF as multiple ECF's do not accept her insurance. Patient will require insurance authorization for ECF The impression and plan of care has been dictated by Lakeisha Banks, Nurse Practitioner as directed. Dr. Valarie MD I have performed a history and examination and MDM of this patient, discussed the same with the dictator, and agree with the dictator's assessment and plan as written ,documented as a scribe. Based on total visit time, I have performed more than 50% of the visit. Objective - Vital Signs Vital signs: Vital Signs Temp 98.5 F 01/12/25 07:17 Pulse 101 H 01/12/25 07:17 Resp 16 01/12/25 07:17 BP 114/78 01/12/25 07:17 Pulse Ox 96 01/12/25 07:17 FiO2 Intake & Output 01/11/25 01/12/25 01/12/25 18:59 06:59 18:59 Intake Total 400 Balance 400 Weight 43.091 kg Intake: Oral 400 Other: # Voids 5 7 - Labs CBC & Chem 7: 01/10/25 06:19 01/11/25 05:11
[2025-01-12] MEDS ORDERED: IPRATROPIUM-ALBUTEROL 3 ML NEB INHALATION PRN (19:00)
[2025-01-12] MEDS: IPRATROPIUM-ALBUTEROL 3 ML NEB INHALATION SCH (21:23)
[2025-01-12] MEDS: MONTELUKAST 10 MG TAB PO SCH (22:16)
[2025-01-12] MEDS: chlordiazePOXIDE 25 MG CAP PO SCH (22:16)
[2025-01-12] MEDS: risperiDONE 2 MG TAB PO SCH (22:35)
[2025-01-12] MEDS: THIAMINE 100 MG TAB PO SCH (22:35)
--- NOTE | 2025-01-13 10:24 | P.PN ---
Progress Note - Text Progress Note Date: 01/13/25 CHIEF COMPLAINT: Alcoholic pancreatitis HISTORY OF PRESENT ILLNESS: Patient denies any abdominal pain. She reports tolerating diet. Denies any nausea or vomiting. VITAL SIGNS: Reviewed. GENERAL: Well-developed in no acute distress. ABDOMEN: Soft. Nondistended. Minimal epigastric pressure with palpation NEUROLOGIC: Alert and oriented. Cranial nerves II through XII grossly intact. ASSESSMENT: 1. Alcoholic pancreatitis likely causing reactive enterocolitis. No gallstones noted on gallbladder ultrasound PLAN: -Continue low-fat diet -No surgical intervention planned -Patient can be discharged from surgical standpoint when medically cleared Marcus Gonzalez DO [facility] [phone]
[2025-01-13 10:34] LABS: Basophils # (A) 0.02 X 10*3/uL (0.00-0.10); Basophils % (A) 0.3 %; Eosinophils # (A) 0.19 X 10*3/uL (0.04-0.35); Eosinophils % (A) 2.5 %; HCT 36.2 % (37.2-46.3); HGB 12.3 g/dL (12.0-15.0); Lymphocytes # (A) 1.09 X 10*3/uL (0.90-5.00); Lymphocytes % (A) 14.3 %; MCH 35.8 pg (27.0-32.0); MCV 105.2 FL (80.0-97.0); Mean Platelet Volume 10.4 FL (9.5-12.2); NRBC Per 100 WBC 0 X 10*3/uL (0.00-0.01); Neutrophils # (A) 5.02 X 10*3/uL (1.80-7.70); Neutrophils % (A) 65.8 %; Platelet Count 218 X 10*3/uL (140-440); RBC 3.44 X 10*6/uL (4.10-5.20); RDW 12.6 % (11.5-14.5); WBC 7.63 X 10*3/uL (4.50-10.00)
[2025-01-13 11:02] LABS: Magnesium 1.3 mg/dL (1.5-2.4)
[2025-01-13 11:09] LABS: ALT 38 U/L (8-44); AST 46 U/L (13-35); Albumin 3.2 g/dL (3.8-4.9); Albumin/Globulin Ratio 1.78 Ratio (1.60-3.17); Alkaline Phosphatase 81 U/L (41-126); BUN/Creat Ratio <7.00 Ratio (12.00-20.00); Blood Urea Nitrogen <3.5 mg/dL (9.0-27.0); Calcium 8.8 mg/dL (8.7-10.3); Carbon Dioxide 24.4 mmol/L (21.6-31.8); Chloride 106 mmol/L (96-109); Globulin 1.8 g/dL (1.6-3.3); Glucose 104 mg/dL (70-110); Potassium 3.6 mmol/L (3.5-5.5); Sodium 141 mmol/L (135-145); Total Bilirubin 0.5 mg/dL (0.3-1.2)
--- NOTE | 2025-01-13 11:49 | P.PN ---
Subjective Patient is admitted for alcoholic pancreatitis and reactive enterocolitis. Patient medically doing well but quite weak patient probably has chronic en cephalopathy from chronic alcohol use awaiting disposition to subacute rehabilitation. REVIEW OF SYSTEMS: All other systems are negative except those mentioned in the HPI PHYSICAL EXAMINATION: GENERAL: The patient is alert and oriented x3, not in any acute distress. Well developed, well nourished. HEENT: Pupils are round and equally reacting to light. EOMI. No scleral icterus. No conjunctival pallor. Normocephalic, atraumatic. No pharyngeal erythema. No thyromegaly. CARDIOVASCULAR: S1 and S2 present. No murmurs, rubs, or gallops. PULMONARY: Chest is clear to auscultation, no wheezing or crackles. ABDOMEN: Soft, nontender, nondistended, normoactive bowel sounds. No palpable organomegaly. MUSCULOSKELETAL: No joint swelling or deformity. EXTREMITIES: No cyanosis, clubbing, or pedal edema. NEUROLOGICAL: Gross neurological examination did not reveal any focal deficits. SKIN: No rashes. Assessment and plan -Alcoholic pancreatitis resolved at this time - Rule out C. difficile multiple episodes of diarrhea secondary to reactive colitis generalized weakness due to chronic alcoholism will need placement at subacute rehabilitation - Hypomagnesemia resolved after replacement - Bipolar disorder/depression - Polysubstance abuse including crack cocaine use in the past - Mild protein-calorie malnutrition Severe deconditioning from multiple drug use and alcoholism patient will need placement at subacute rehabilitation DVT prophylaxis: Patient will be started on Lovenox Objective - Vital Signs Vital signs: Vital Signs Temp 98.5 F 01/13/25 07:18 Pulse 103 H 01/13/25 07:18 Resp 18 01/13/25 07:18 BP 140/91 01/13/25 07:18 Pulse Ox 98 01/13/25 07:18 FiO2 Intake & Output 01/12/25 01/13/25 01/13/25 18:59 06:59 18:59 Other: Voiding Method Toilet # Voids 12 5 1 - Labs CBC & Chem 7: 01/13/25 03:47 01/13/25 03:47 Labs: Abnormal Lab Results - Last 24 Hours (Table) 01/13/25 01/13/25 Range/Units 03:47 03:47 RBC 3.44 L (4.10-5.20) X 10*6/uL Hct 36.2 L (37.2-46.3) % MCV 105.2 H (80.0-97.0) FL MCH 35.8 H (27.0-32.0) pg Monocytes # 1.30 H (0.20-1.00) X 10*3/uL BUN <3.5 L (9.0-27.0) mg/dL Creatinine 0.5 L (0.6-1.5) mg/dL BUN/Creatinine Ratio <7.00 L (12.00-20.00) Ratio Magnesium 1.3 L (1.5-2.4) mg/dL AST 46 H (13-35) U/L Total Protein 5.0 L (6.2-8.2) g/dL Albumin 3.2 L (3.8-4.9) g/dL
[2025-01-13] MEDS: ENOXAPARIN 40 MG/0.4 ML SYRINGE SQ SCH (11:55)
[2025-01-13] MEDS: MAGNESIUM SULFATE-D5W PMX 1 GM in DEXTROSE/WATER 1 100ML.BAG IVPB SCH (17:15)
[2025-01-14 05:53] LABS: ALT 34 U/L (4-34); AST 44 U/L (14-36); African American GFR (CKD) >90 (>60 ml/min/1.73 sqM); Albumin 2.9 g/dL (3.5-5.0); Albumin/Globulin Ratio 1.2; Alkaline Phosphatase 80 U/L (38-126); Anion Gap 5 mmol/L; Blood Urea Nitrogen 4 mg/dL (7-17); Calcium 8.5 mg/dL (8.4-10.2); Carbon Dioxide 26 mmol/L (22-30); Chloride 105 mmol/L (98-107); Globulin 2.4 g/dL; Glucose 97 mg/dL (74-99); Magnesium 2.4 mg/dL (1.6-2.3); Non-African American GFR(CKD) >90 (>60 ml/min/1.73 sqM); Potassium 3.4 mmol/L (3.5-5.1); Sodium 136 mmol/L (137-145); Total Bilirubin 0.7 mg/dL (0.2-1.3); Total Protein 5.3 g/dL (6.3-8.2)
[2025-01-14] MEDS: POTASSIUM CHLORIDE ER 20 MEQ TAB.ER PO SCH (07:41)
--- NOTE | 2025-01-14 12:12 | P.PN ---
Subjective Patient is admitted for alcoholic pancreatitis and reactive enterocolitis. Patient medically doing well but quite weak patient probably has chronic en cephalopathy from chronic alcohol use awaiting disposition to subacute rehabilitation. 01/14/2025 Patient is clinically doing well no overnight events awaiting disposition to subacute rehabilitation tomorrow REVIEW OF SYSTEMS: All other systems are negative except those mentioned in the HPI PHYSICAL EXAMINATION: GENERAL: The patient is alert and oriented x3, not in any acute distress. Well developed, well nourished. HEENT: Pupils are round and equally reacting to light. EOMI. No scleral icterus. No conjunctival pallor. Normocephalic, atraumatic. No pharyngeal erythema. No thyromegaly. CARDIOVASCULAR: S1 and S2 present. No murmurs, rubs, or gallops. PULMONARY: Chest is clear to auscultation, no wheezing or crackles. ABDOMEN: Soft, nontender, nondistended, normoactive bowel sounds. No palpable organomegaly. MUSCULOSKELETAL: No joint swelling or deformity. EXTREMITIES: No cyanosis, clubbing, or pedal edema. NEUROLOGICAL: Gross neurological examination did not reveal any focal deficits. SKIN: No rashes. Assessment and plan -Alcoholic pancreatitis resolved at this time - Rule out C. difficile multiple episodes of diarrhea secondary to reactive colitis generalized weakness due to chronic alcoholism will need placement at subacute rehabilitation - Hypomagnesemia resolved after replacement - Bipolar disorder/depression - Polysubstance abuse including crack cocaine use in the past - Mild protein-calorie malnutrition Severe deconditioning from multiple drug use and alcoholism patient will need placement at subacute rehabilitation DVT prophylaxis: Patient will be started on Lovenox Objective - Vital Signs Vital signs: Vital Signs Temp 97.7 F 01/14/25 07:18 Pulse 88 01/14/25 07:18 Resp 16 01/14/25 07:18 BP 114/77 01/14/25 07:18 Pulse Ox 95 01/14/25 07:18 FiO2 Intake & Output 01/13/25 01/14/25 01/14/25 18:59 06:59 18:59 Intake Total 450 Balance 450 Intake: Oral 450 Other: Voiding Method Toilet # Voids 4 4 2 - Labs CBC & Chem 7: 01/13/25 03:47 01/14/25 04:36 Labs: Abnormal Lab Results - Last 24 Hours (Table) 01/14/25 Range/Units 04:36 Sodium 136 L (137-145) mmol/L Potassium 3.4 L (3.5-5.1) mmol/L BUN 4 L (7-17) mg/dL Creatinine 0.43 L (0.52-1.04) mg/dL Magnesium 2.4 H (1.6-2.3) mg/dL AST 44 H (14-36) U/L Total Protein 5.3 L (6.3-8.2) g/dL Albumin 2.9 L (3.5-5.0) g/dL
--- NOTE | 2025-01-14 13:14 | P.PN ---
Progress Note - Text Progress Note Date: 01/14/25 CHIEF COMPLAINT: Alcoholic pancreatitis HISTORY OF PRESENT ILLNESS: Patient denies any abdominal pain. She reports tolerating diet. Denies any nausea or vomiting. VITAL SIGNS: Reviewed. GENERAL: Well-developed in no acute distress. ABDOMEN: Soft. Nondistended. Minimal epigastric pressure with palpation NEUROLOGIC: Alert and oriented. Cranial nerves II through XII grossly intact. ASSESSMENT: 1. Alcoholic pancreatitis likely causing reactive enterocolitis. No gallstones noted on gallbladder ultrasound PLAN: -Continue low-fat diet -No surgical intervention planned -Patient can be discharged from surgical standpoint when medically cleared Marcus Gonzalez DO [facility] [phone]
[2025-01-15 03:30] LABS: ALT 33 U/L (4-34); AST 40 U/L (14-36); African American GFR (CKD) >90 (>60 ml/min/1.73 sqM); Albumin 2.8 g/dL (3.5-5.0); Albumin/Globulin Ratio 1.2; Alkaline Phosphatase 78 U/L (38-126); Anion Gap 6 mmol/L; Blood Urea Nitrogen 7 mg/dL (7-17); Carbon Dioxide 27 mmol/L (22-30); Chloride 103 mmol/L (98-107); Globulin 2.4 g/dL; Glucose 99 mg/dL (74-99); Magnesium 1.8 mg/dL (1.6-2.3); Non-African American GFR(CKD) >90 (>60 ml/min/1.73 sqM); Potassium 3.7 mmol/L (3.5-5.1); Sodium 136 mmol/L (137-145); Total Bilirubin 0.5 mg/dL (0.2-1.3); Total Protein 5.2 g/dL (6.3-8.2)
[2025-01-15] MEDS: chlordiazePOXIDE 25 MG CAP PO SCH (08:12)
--- NOTE | 2025-01-15 11:20 | P.PN ---
Subjective Progress Note Date: 01/15/25 SURGICAL PROGRESS NOTE CHIEF COMPLAINT: Alcoholic pancreatitis HISTORY OF PRESENT ILLNESS: Patient denies any abdominal pain. She reports tolerating diet. Denies any nausea or vomiting. Possible discharge to ECF today. PHYSICAL EXAM: VITAL SIGNS: Reviewed. GENERAL: Well-developed in no acute distress. ABDOMEN: Soft. Nondistended. Nontender NEUROLOGIC: Alert and oriented. Cranial nerves II through XII grossly intact. ASSESSMENT: 1. Alcoholic pancreatitis likely causing reactive enterocolitis. Improved. No gallstones noted on gallbladder ultrasound PLAN: -Continue low-fat diet -No surgical intervention planned -Patient can be discharged from surgical standpoint when medically cleared Physician Valve Seater Operator note has been reviewed by physician. Signing provider agrees with the documented findings, assessment, and plan of care. Objective - Vital Signs Vital signs: Vital Signs Temp 98.2 F 01/15/25 07:17 Pulse 98 01/15/25 07:17 Resp 18 01/15/25 07:17 BP 126/82 01/15/25 07:17 Pulse Ox 98 01/15/25 07:17 FiO2 Intake & Output 01/14/25 01/15/25 01/15/25 18:59 06:59 18:59 Other: Voiding Method Toilet # Voids 2 5 - Labs CBC & Chem 7: 01/13/25 03:47 01/15/25 02:57 Labs: Abnormal Lab Results - Last 24 Hours (Table) 01/15/25 Range/Units 02:57 Sodium 136 L (137-145) mmol/L Creatinine 0.47 L (0.52-1.04) mg/dL AST 40 H (14-36) U/L Total Protein 5.2 L (6.3-8.2) g/dL Albumin 2.8 L (3.5-5.0) g/dL
--- NOTE | 2025-01-15 12:04 | CT ---
EXAMINATION TYPE: CT brain wo con DATE OF EXAM: 01/15/2025 11:58 AM COMPARISON: None. CLINICAL INDICATION: Female, 65 years old with history of confusion, gen weakness, unsteady gait, Con fusion, general weakness, unsteady gait, TECHNIQUE: Examination was done in axial plane without intravenous contrast. Coronal and sagittal r econstructions performed. CT DLP: 1151.4 mGycm, Automated exposure control for dose reduction was used. FINDINGS: There is no evidence of acute intracranial hemorrhage, acute ischemic changes, mass, mass-effect, or extra-axial fluid collection. There is no effacement of cerebral sulci or basal subarachnoid cister ns. There is no hydrocephalus. There is no midline shift. Deutsch-white matter distinction is preserv ed. Mild age-related generalized supratentorial volume loss. Scattered mild mucosal thickening ethmoid air cells. Mastoid air cells well pneumatized. Orbits and g lobes are intact. IMPRESSION: Mild age-related cerebral atrophy. No acute intracranial abnormality seen. [facility], Workstation: [email or web address], 01/15/2025 12:02 PM
[2025-01-15] MEDS: PANTOPRAZOLE 40 MG TABLET PO SCH (17:45)
--- NOTE | 2025-01-16 06:33 | P.PN ---
Subjective Progress Note Date: 01/15/25 This is a pleasant 64-year-old female who presented to the emergency department with generalized weakness that has been ongoing over the last few weeks and over the last week is progressively gotten worse. Patient also has been having issues with coughing and gagging and continued pain on her right side. Patient reports to drinking 3 drinks per day and has history of heavy alcohol use. Patient follows with Dr. Enriquez in the outpatient setting with past medical history of COPD, rheumatoid arthritis, degenerative disc disease, anxiety/bipolar depression. Patient admits to drinking alcohol and smoking cigarettes and denies any other drug use. Patient labs reviewed on admission reveal a white count of 8.9, hemoglobin 15.1, platelets 122, sodium 136 with a potassium of 3.7, BUN is 12, creatinine 0.8, lactic acid was 2.4, magnesium was 1.4, total bili is 1.1, AST elevated at 124, ALT 67, amylase 179, lipase 3652 urinalysis somewhat abnormal protein otherwise negative. Chest x-ray shows no acute cardiopulmonary process, CT abdomen pelvis shows suspect acute edematous interstitial pancreatitis causing reactive acute enterocolitis correlate clinically with pancreatic lab values. Patient was admitted with general surgery on consultation. 01/09/2025 Patient seen in follow-up today currently maintained on clear liquids along with IV hydration General Surgery following. Labs reviewed today reveal a sodium of 137 potassium 2.9, BUN 7.0 with creatinine 0.5, lactic acid has normalized, magnesium is 2.1 after replacement, AST trending down at 94 and ALT is 44. Will replace electrolytes per protocol and also adjust medications. Patient reports she is tolerating clear liquids although does continue with some mild abdominal discomfort. 01/10/2025 Patient seen in follow-up this morning sitting up in the chair much more awake and alert today. Patient reports she is feeling improved and no abdominal pain and diet is being advanced per general surgery. Amylase/lipase remain elevated although are trending down and will continue with IV hydration and pain management. Patient also to continue on CIWA protocol and Librium taper. Patient is afebrile with no reports of chest pain or shortness of breath on exam reporting she would like to go home. Will have PT/OT therapy evaluate and appreciate input and recommendations. If patient continues to improve and tolerating oral intake, may be considered discharge. 01/11/2025 Patient is seen in follow-up today LFTs are improving along with amylase and lipase and patient is tolerating more diet reports no abdominal pain. Patient e valuated by general surgery clearing the patient for discharge. Will await updated PT/OT therapy notes as patient is unsteady and reports ongoing home. Patient is afebrile and did report some chest pain this morning and obtained a chest x-ray along with troponin and EKG which were within normal limits. Patient will be monitored overnight and probable discharge in 24 hours. 01/12/2025 Patient is seen in follow-up this morning appears to be mildly tremulous and extremely weak and per nursing staff had attempted to get up when family was present and reports to falling. Patient is significantly weak and will have PT/OT therapy reevaluate and discuss further with case management as we feel she is unsafe for discharge home and would benefit from ECF. Patient does have significant history of EtOH abuse and is here for alcoholic pancreatitis which has improved and patient is tolerating diet. Patient was maintained on CIWA although not requiring Ativan and is on a Librium taper which will taper to twice daily. Patient will require insurance authorization which will be submitted and case management currently working on an accepting ECF. Multiple ECF's are out of network and not accepting her insurance. [facility] has no bed available until mid next week. [facility] cannot accept her insurance. Patient is afebrile with no reports of chest pain or shortness of breath. Patient is michelle ating diet and will continue current regimen. 01/13/2025 Patient is seen in follow-up this morning with ex-spouse at the bedside working on eating and patient is significantly weak and per family at bedside who reports she is not this week at home. Patient is extremely high risk of falling and unsteady also waiting insurance authorization for ECF for continued strength and mobility. Insurance requesting a [id number] which will be done today. Patient is afebrile and tolerating diet with no reported nausea or vomiting and further abdominal pain noted. General surgery was following and has cleared the patient for discharge recommend continued complete alcohol cessation. Patient was reevaluated by physical therapy recommending ECF for continued strength and mobility and initially patient had wanted to go home although is now agreeable to ECF. Review of systems: Constitutional: No reports of fatigue, fever, or chills Cardiovascular: No reports of chest pain or palpitations Respiratory: No reports of shortness of breath or cough GI: No reports of further nausea, no vomiting, or diarrhea, reports no further abdominal pain : No reports of dysuria or retention Neurovascular: reports of generalized weakness and some mild shakiness All medications have been reviewed PHYSICAL EXAMINATION: GENERAL: The patient is alert and oriented x2-3, baseline. Well developed, appears older than stated age, thin built, ill-appearing HEENT: Pupils are round and equally reacting to light. EOMI. No scleral icterus. No conjunctival pallor. Normocephalic, atraumatic. No pharyngeal erythema. No thyromegaly. CARDIOVASCULAR: S1 and S2 muffled, mildly tachycardic PULMONARY: Diminished breath sounds bilaterally otherwise chest is clear to auscultation, no wheezing or crackles. ABDOMEN: Soft, thin, tender, nondistended, normoactive bowel sounds. No palpable organomegaly. MUSCULOSKELETAL: No joint swelling or deformity. EXTREMITIES: No cyanosis, clubbing, or pedal edema. NEUROLOGICAL: Gross neurological examination did not reveal any focal deficits. Diffusely weak SKIN: No rashes. Assessment: Abdominal pain with ongoing nausea and gagging for the last few weeks, secondary to acute pancreatitis with elevated amylase and lipase on admission Likely acute alcoholic pancreatitis as patient is a heavy drinker and last drink which she reports is heavy liquor 1 night prior to admission, evidence of enterocolitis on CT imaging Multiple episodes of diarrhea, ruled out C. difficile Transaminitis likely secondary to continued ongoing alcohol abuse Concerns for acute alcohol withdrawal with early delirium tremens, continued on CIWA protocol Generalized weakness with gait dysfunction and fall, significantly weak and will require ECF on discharge Hypomagnesemia, improved after replacement Lactic acidosis, on admission likely secondary to acute pancreatitis History of COPD, not in exacerbation History of rheumatoid arthritis Degenerative disc disease history Anxiety/bipolar/depression Continued ongoing bleeding abuse History of polysubstance abuse including narcotics, crack/cocaine Mild protein calorie malnutrition with a BMI of 17.4 GI prophylaxis DVT prophylaxis Full code Plan: Patient was admitted with general surgery on consult for acute pancreatitis with abdominal pain and nausea, with concerns of enterocolitis as noted on CT imaging Gallbladder ultrasound ordered to evaluate for gallstones with no plans for surgical intervention at this time LFTs are elevated although trending down and will follow up and monitor expected to improve with alcohol cessation Patient was continued on CIWA protocol and also completed Librium taper Continue gentle IV hydration and diet is being tolerated. Recommend aspiration precautions and supervision of meals with head of the bed elevated 30 to 45 degrees at all times Will review and resume appropriate home medications Recommend PT/OT therapy daily. Insurance denying authorization to [facility] requesting a peer to peer which was performed and will be approved as this is not patient's baseline and was independent with assistive devices prior to hospitalization Will await approval notice and discuss discharge planning in 24 hours. Patient will be going to [facility] Due to multiple complex medical issues, overall prognosis is guarded The impression and plan of care has been dictated by Lakeisha Banks, Nurse Practitioner as directed. Dr. Denny MD I have performed a history and examination and MDM of this patient, discussed the same with the dictator, and agree with the dictator's assessment and plan as written ,documented as a scribe. Based on total visit time, I have performed more than 50% of the visit. Objective - Vital Signs Vital signs: Vital Signs Temp 98.2 F 01/15/25 07:17 Pulse 98 01/15/25 07:17 Resp 18 01/15/25 07:17 BP 126/82 01/15/25 07:17 Pulse Ox 98 01/15/25 07:17 FiO2 Intake & Output 01/14/25 01/15/25 01/15/25 18:59 06:59 18:59 Other: Voiding Method Toilet # Voids 2 5 - Labs CBC & Chem 7: 01/13/25 03:47 01/15/25 02:57 Labs: Abnormal Lab Results - Last 24 Hours (Table) 01/15/25 Range/Units 02:57 Sodium 136 L (137-145) mmol/L Creatinine 0.47 L (0.52-1.04) mg/dL AST 40 H (14-36) U/L Total Protein 5.2 L (6.3-8.2) g/dL Albumin 2.8 L (3.5-5.0) g/dL
[2025-01-16 08:35] VITALS: RESP 18
--- NOTE | 2025-01-16 14:28 | P.DS ---
Providers Date of admission: 01/07/25 15:30 Expected date of discharge: 01/16/25 Attending physician: Jose Alfredo Weldon MD Primary care physician: Navi Enriquez MD Hospital Course: Final diagnosis Abdominal pain with ongoing nausea and gagging for the last few weeks, secondary to acute pancreatitis with elevated amylase and lipase on admission Likely acute alcoholic pancreatitis as patient is a heavy drinker and last drink which she reports is heavy liquor 1 night prior to admission, evidence of enterocolitis on CT imaging Multiple episodes of diarrhea, ruled out C. difficile Transaminitis likely secondary to continued ongoing alcohol abuse Concerns for acute alcohol withdrawal with early delirium tremens, continued on CIWA protocol Generalized weakness with gait dysfunction and fall, significantly weak and will require ECF on discharge Hypomagnesemia, improved after replacement Lactic acidosis, on admission likely secondary to acute pancreatitis History of COPD, not in exacerbation History of rheumatoid arthritis Degenerative disc disease history Anxiety/bipolar/depression Continued ongoing bleeding abuse History of polysubstance abuse including narcotics, crack/cocaine Mild protein calorie malnutrition with a BMI of 17.4 GI prophylaxis DVT prophylaxis Full code Discharge disposition Patient is being discharged in a stable condition with guarded prognosis to [facility] . Patient will follow-up with Dr. Enriquez in the outpatient setting upon discharge. Patient is to continue with current medications as prescribed and outpatient follow-up with general surgery as scheduled. Total time taken is greater than 35 minutes. Hospital course This is a 65-year-old female who was recently admitted with abdominal pain found to have acute pancreatitis likely secondary to continued alcohol use. Patient also with acute alcohol withdrawal on admission maintained on CIWA protocol was evaluated by general surgery maintained on gentle hydration showing some improvements and is now tolerating diet. Patient reports to drinking daily and was actively withdrawing on admission maintained on CIWA showing some improvements and has completed a Librium taper. Patient with generalized weakness initially wanted to go home with family and unfortunately was with family in the room and fell and was reevaluated by physical therapy recommending rehab. Patient is agreeable as patient was independent at baseline. Insurance initially denied authorization although peer to peer was done and approved for continued strength and mobility at an ECF. Patient has received insurance authorization and will be going to [facility] today. Patient has been instructed to refrain from all alcohol use and exposure to and would recommend outpatient follow-up with general surgery as needed. Currently no r eports of chest pain, shortness of breath, or palpitations. Patient is afebrile. No reports of nausea or vomiting and patient is tolerating diet. Strongly recommend aspiration precautions and head of the bed elevated 30 to 45 degrees at all times. Patient will be going to [facility] today. High risk for readmissions given continued alcohol use Physical exam: Gen: This is a 65-year-old female who is awake, alert and oriented x 2-3, baseline, well-developed, elderly appearing, thin built HEENT: Head is atraumatic, normocephalic. Pupils equal, round. Sclerae is anicteric. NECK: Supple. No JVD. No lymphadenopathy. No thyromegaly. LUNGS: Diminished breath sounds bilaterally otherwise clear to auscultation. No wheezes or rhonchi. No intercostal retractions. HEART: S1, S2 are muffled ABDOMEN: Soft. Thin bowel sounds are present. No masses. No tenderness. EXTREMITIES: No pedal edema. No calf tenderness. NEUROLOGICAL: Patient is awake, alert and oriented x 2-3. Cranial nerves 2 through 12 are grossly intact. Diffusely weak Please refer to medication reconciliation sheet for a list of medications. The impression and plan of care has been dictated by Lakeisha Banks, Nurse Practitioner as directed. Dr. Denny MD I have performed a history and examination and MDM of this patient, discussed the same with the dictator, and agree with the dictator's assessment and plan as written ,documented as a scribe. Based on total visit time, I have performed more than 50% of the visit. Patient Condition at Discharge: Fair Plan - Discharge Summary New Discharge Prescriptions: New Folic Acid 1 mg PO DAILY #30 tablet Enoxaparin [Lovenox] 40 mg SQ DAILY each Acetaminophen Tab [Tylenol] 650 mg PO Q6HR PRN tab PRN Reason: Mild Pain Or Fever > 100.5 Ipratropium-Albuterol Nebulize [Duoneb 0.5 mg-3 mg/3 ml Soln] 3 ml INHALATION RT-TID each Ipratropium-Albuterol Nebulize [Duoneb 0.5 mg-3 mg/3 ml Soln] 3 ml INHALATION RT-TID PRN each PRN Reason: Shortness Of Breath Or Wheezing Loperamide [Imodium] 2 mg PO QID PRN cap PRN Reason: Diarrhea Multivitamins, Thera [Multivitamin] 1 tab PO DAILY #30 tablet Pantoprazole [Protonix] 40 mg PO AC-BID tab Continue Montelukast [Singulair] 10 mg PO HS Thiamine HCl [Vitamin B-1] 100 mg PO DAILY Fluticasone Nasal Denio [Flonase Nasal Denio] 1 spray EA NOSTRIL BID risperiDONE 2 mg PO HS Discontinued Omeprazole 40 mg PO DAILY Discharge Medication List Montelukast [Singulair] 10 mg PO HS 02/25/24 [History] Fluticasone Nasal Denio [Flonase Nasal Denio] 1 spray EA NOSTRIL BID 01/07/25 [History] Thiamine HCl [Vitamin B-1] 100 mg PO DAILY 01/07/25 [History] risperiDONE 2 mg PO HS 01/07/25 [History] Acetaminophen Tab [Tylenol] 650 mg PO Q6HR PRN tab 01/16/25 [Rx] Enoxaparin [Lovenox] 40 mg SQ DAILY each 01/16/25 [Rx] Folic Acid 1 mg PO DAILY #30 tablet 01/16/25 [Rx] Ipratropium-Albuterol Nebulize [Duoneb 0.5 mg-3 mg/3 ml Soln] 3 ml INHALATION RT-TID each 01/16/25 [Rx] Ipratropium-Albuterol Nebulize [Duoneb 0.5 mg-3 mg/3 ml Soln] 3 ml INHALATION RT-TID PRN each 01/16/25 [Rx] Loperamide [Imodium] 2 mg PO QID PRN cap 01/16/25 [Rx] Multivitamins, Thera [Multivitamin] 1 tab PO DAILY #30 tablet 01/16/25 [Rx] Pantoprazole [Protonix] 40 mg PO AC-BID tab 01/16/25 [Rx] Follow up Appointment(s)/Referral(s): Navi Enriquez MD [Primary Care Provider] - 1-2 days [facility] [NON-STAFF] - As Needed (prisca) [facility] - As Needed Activity/Diet/Wound Care/Special Instructions: Patient is going to [facility] Activity as tolerated Follow-up with primary care provider on discharge Avoid all alcohol exposure and use Continue taking medications as prescribed Follow-up with general surgery outpatient as needed Discharge/Stand Alone Forms: AA Latia Reed, Outpatient Counseling, In Substance Abuse Facilities Discharge Disposition: TRANSFER TO SNF/ECF
[2025-01-16 14:41] VITALS: BP 115/80; PULSE 104; TEMP 98.2
== END 2025-01-16 17:27 | DRG 439 ==
LOC: EC 11:40 → 4SSUR 15:30
PROVIDERS: ADMIT Internal Medicine; ATTEND Internal Medicine
DX: K85.20 Alcohol induced acute pancreatitis without necrosis or infection (principal); E44.1 Mild protein-calorie malnutrition; G93.40 Encephalopathy, unspecified; F10.239 Alcohol dependence with withdrawal, unspecified; J44.9 Chronic obstructive pulmonary disease, unspecified; M06.9 Rheumatoid arthritis, unspecified; F11.21 Opioid dependence, in remission; F31.9 Bipolar disorder, unspecified; K76.0 Fatty (change of) liver, not elsewhere classified; E87.20 Acidosis, unspecified; Z68.1 Body mass index [BMI] 19.9 or less, adult; F14.21 Cocaine dependence, in remission; R16.0 Hepatomegaly, not elsewhere classified; R26.9 Unspecified abnormalities of gait and mobility; K52.9 Noninfective gastroenteritis and colitis, unspecified; F17.210 Nicotine dependence, cigarettes, uncomplicated; E83.42 Hypomagnesemia; F41.9 Anxiety disorder, unspecified; Z79.899 Other long term (current) drug therapy; Z91.81 History of falling
CPT/HCPCS: 36415; 70450; 71045; 71046; 74177; 76705; 80048; 80053; 81001; 82150; 83605; 83690; 83735; 84132; 84484; 85025; 85610; 85730; 87324; 93005; 94760; 96361; 96365; 96366; 96367; 96372; 96375; 96376; 99285